=== PATIENT | male | born 1945 | race Caucasian/White ===

== ENCOUNTER 2020-07-22 12:49 | Outpatient (CLI) | payer MEDICARE, SELFPAY ==
[2020-07-22 13:00] LABS: Hemoglobin 13.1 g/dL (12.4-15.3); Mean Corpuscular HGB Conc 33.6 g/dL (32.0-36.0); Mean Corpuscular Hemoglobin 31.1 pg (27.0-31.0); Mean Corpuscular Volume 92.6 fL (78.0-102.0); Mean Platelet Volume 10.2 fl (8.7-11.0); Platelet Count Result 198 K/mm3 (150-420); Red Blood Count 4.21 M/mm3 (4.70-6.10); Red Cell Distribution Width 12.6 % (11.6-14.4); White Blood Count 7.3 K/mm3 (4.8-10.8)
[2020-07-22 14:23] LABS: Alanine Aminotransferase 69 U/L (16-63); Albumin Level 4.2 g/dL (3.4-5.0); Alkaline Phosphatase 76 U/L (46-116); Anion Gap 12 mmol/L (8-16); Aspartate Amino Transferase 37 U/L (15-37); Bilirubin,Total 0.9 mg/dL (0.00-1.00); Blood Urea Nitrogen 17 mg/dL (7-18); Calcium 9.1 mg/dL (8.5-10.1); Carbon Dioxide 25 mmol/L (21-32); Chloride 100 mmol/L (98-108); Cholesterol 123 mg/dL (0-200); Estimated Glomerular Filt Rate > 60; Glucose 94 mg/dL (70-99); HDL Direct 48 mg/dL (40-60); LDL Cholesterol Calculated 34 mg/dL (<130); Osmolality Calculated 285 mOsm/kg (285-295); Potassium 4.5 mmol/L (3.5-5.1); Sodium 137 mmol/L (136-145); Total Protein 7.9 g/dL (6.4-8.2); Triglycerides 204 mg/dL (0-150); Vitamin B12 614 pg/mL (193-986)
[2020-07-22 14:42] LABS: Folic Acid > 20.0 ng/mL (8.6->20)
[2020-07-23 09:48] LABS: Thyroid Stimulating Hormone Reflex 1.14 u/IU/mL (0.36-3.74)
== END 2020-07-22 12:50 | disposition home or self-care (01) ==
PROVIDERS: PCP Family Medicine; Visit Provider Family Medicine
DX: I50.9 Heart failure, unspecified (principal); G62.9 Polyneuropathy, unspecified; E03.9 Hypothyroidism, unspecified; K21.9 Gastro-esophageal reflux disease without esophagitis; Z95.0 Presence of cardiac pacemaker
CPT/HCPCS: 36415; 80053; 80061; 82607; 82746; 84443; 85027

== ENCOUNTER 2021-01-13 10:34 | Outpatient (CLI) | payer MEDICARE, SELFPAY ==
[2021-01-13 12:16] LABS: Alanine Aminotransferase 80 U/L (16-63); Albumin Level 4.3 g/dL (3.4-5.0); Alkaline Phosphatase 80 U/L (46-116); Anion Gap 9 mmol/L (8-16); Aspartate Amino Transferase 46 U/L (15-37); Bilirubin,Total 0.7 mg/dL (0.00-1.00); Blood Urea Nitrogen 14 mg/dL (7-18); Carbon Dioxide 29 mmol/L (21-32); Chloride 102 mmol/L (98-108); Cholesterol 140 mg/dL (0-200); Estimated Glomerular Filt Rate > 60; Glucose 92 mg/dL (70-99); HDL Direct 54 mg/dL (40-60); LDL Cholesterol Calculated 26 mg/dL (<130); Osmolality Calculated 290 mOsm/kg (285-295); Potassium 4.5 mmol/L (3.5-5.1); Sodium 140 mmol/L (136-145); Total Protein 8.1 g/dL (6.4-8.2); Triglycerides 299 mg/dL (0-150)
[2021-01-13 12:37] LABS: Prostate Specific Antigen < 0.1 ng/mL (< OR = 4.0)
== END 2021-01-13 10:35 | disposition home or self-care (01) ==
LOC: CHSLAB 10:37
PROVIDERS: PCP Nurse Practitioner Family; Visit Provider Nurse Practitioner Family
DX: E03.9 Hypothyroidism, unspecified (principal); E78.5 Hyperlipidemia, unspecified; I10 Essential (primary) hypertension; Z12.5 Encounter for screening for malignant neoplasm of prostate
CPT/HCPCS: 36415; 80053; 80061; 84153; 84443; G0103

== ENCOUNTER 2021-01-29 08:46 | Outpatient (CLI) | payer MEDICARE, SELFPAY ==
[2021-01-29 10:21] LABS: Alanine Aminotransferase 69 U/L (16-63); Alkaline Phosphatase 74 U/L (46-116); Aspartate Amino Transferase 42 U/L (15-37); Bilirubin Direct 0.2 mg/dL (0-0.2); Bilirubin,Total 0.7 mg/dL (0.00-1.00); Total Protein 7.4 g/dL (6.4-8.2)
[2021-02-02 22:43] LABS: Hepatitis A Antibody IgM Nonreactive; Hepatitis B Core Antibody Nonreactive (Nonreactive); Hepatitis B Surface Antigen Nonreactive (Nonreactive); Hepatitis C Signal to Cutoff 0.08 ratio (<1.00); Hepatitis C Virus Antibody Nonreactive (Nonreactive)
== END 2021-01-29 08:47 | disposition home or self-care (01) ==
LOC: CHSLAB 08:51
PROVIDERS: PCP Nurse Practitioner Family; Visit Provider Nurse Practitioner Family
DX: R94.5 Abnormal results of liver function studies (principal)
CPT/HCPCS: 36415; 80074; 80076

== ENCOUNTER 2021-07-27 00:02 | Day surgery (SDC) | payer MEDICARE, SELFPAY ==
[2021-07-16 14:56] VITALS: BMI 28.7
[2021-07-27 08:55] VITALS: BP 138/81; PULSE 84; RESP 19; TEMP 36.2; O2SAT 98; BMI 29.7
--- NOTE | 2021-07-27 09:03 | WPDANESEPPF ---
Anes - Initial Pre Proc Eval Procedure: Operation Date: 07/27/21 10:00 Proposed Procedures p Screening Colonoscopy - Sanjay Parikh MD Date/Time: 07/27/21 09:03 Surgeon: Sanjay Parikh MD Pre Op Diagnosis: hx of colon polyps Patient Data Age: 76 Gender: M Height: 1.83 m Weight: 99.7 kg Last Vital Signs Temp 36.2 C L 07/27/21 08:55 Pulse 84 07/27/21 08:55 Resp 19 07/27/21 08:55 BP 138/81 07/27/21 08:55 Pulse Ox 98 07/27/21 08:55 Allergies Allergy/AdvReac Type Severity Reaction Status Date / Time ciprofloxacin Allergy Intermediate Rash Verified 07/27/21 08:54 lisinopril Allergy Intermediate Cough Verified 07/27/21 08:54 Home Medications Medication Instructions Recorded Confirmed Type aspirin 81 mg tablet,delayed 81 mg PO DAILY 04/06/19 07/27/21 History release amlodipine 10 mg tablet 10 mg PO DAILY #90 tablet 03/16/21 07/27/21 Rx atorvastatin 40 mg tablet 40 mg PO QHS #90 tablet 03/16/21 07/27/21 Rx levothyroxine 75 mcg tablet 75 mcg PO DAILY #90 tablet 03/16/21 07/27/21 Rx losartan 100 mg tablet 100 mg PO DAILY #90 tablet 03/16/21 07/27/21 Rx metoprolol tartrate 25 mg tablet 25 mg PO BID #180 tablet 03/16/21 07/27/21 Rx pregabalin 100 mg capsule 100 mg PO TID #90 cap 06/30/21 07/27/21 Rx cyanocobalamin (vitamin B-12) 1,000 mcg PO DAILY 07/16/21 07/27/21 History [Vitamin B-12] Patient hx anesthesia problems: none Family hx anesthesia problems: none Results Review: All pre-operative results and documents have been reviewed as part of the pre-operative evaluation. [facility] Past Medical History Medical History Atrial flutter Diastolic heart failure History of colon polyps Hyperlipidemia Hypertension Hypothyroidism Pacemaker Peripheral neuropathy Personal history of prostate cancer Surgical History Surgical History H/O cardiac radiofrequency ablation (~2018) No history of previous surgery Family History Family History Brother Acute myocardial infarction Father Malignant neoplasm of prostate Mother No active medical problems Social History Social History Smoking status: Never smoker Alcohol intake: current Drinks per week: 21 Alcohol use details: WINE Substance use: never Substance use type: does not use Living arrangements: with family Additional living arrangements comments: . 3 Children. Additional occupation/education comments: Employed at [employer]. Gender identity (if verbalized by the patient): Male Spiritual care concerns: No Agree to blood products: Yes Anes - Eval Final PreProcedure Day of Procedure 07/27/21 09:03 Patient weight: obese Heart: regular rate and rhythm (paced) Lungs: clear to auscultation Airway: Mallampati scale class II Neurological: alert and oriented Last oral intake: >/= 8 hours ASA classification: III Emergent: no Anesthetic plan: proceed Anesthesia type and monitoring: general GIVS and standard monitoring Results Review: All pre-operative results and documents have been reviewed as part of the pre-operative evaluation. Informed Consent: The patient's anesthetic plan and its attendant risks and benefits were discussed with the patient/family/POA. Questions were solicited and answers provided to the satisfaction of the patient/family/POA.
[2021-07-27] MEDS: LACTATED RINGERS 1,000 ML 150 ML IV CONT (09:07)
--- NOTE | 2021-07-27 09:31 | WPDGICN ---
Assessment and Plan Assessment and plan (1) History of colon polyps: Code(s): Z86.010 - Personal history of colonic polyps Status: Acute Assessment and Plan: Patient has a distant history of colon polyps. He presents today for neoplasia screening. Further recommendations will be given after endoscopy. GI Consult Note Consult date/time: 07/27/21 09:31 HPI: Melchor Leone is a 76 year old male Presents for screening colonoscopy. Patient's current weight appetite and bowel movements are normal. He denies abdominal pain. Family history is noncontributory. Patient's last colonoscopy 2012 was unremarkable. He does have prior colonoscopies that had shown colon polyps before that. Patient presents today for neoplasia screening. Review of Systems Review of Systems: All systems reviewed & are unremarkable except as noted in HPI and below PMFSH Past Medical History Medical History Atrial flutter Diastolic heart failure History of colon polyps Hyperlipidemia Hypertension Hypothyroidism Pacemaker Peripheral neuropathy Personal history of prostate cancer Surgical History Surgical History H/O cardiac radiofrequency ablation (~2017) No history of previous surgery Family History Family History Brother Acute myocardial infarction Father Malignant neoplasm of prostate Mother No active medical problems Social History Social History Smoking status: Never smoker Alcohol intake: current Drinks per week: 21 Alcohol use details: WINE Substance use: never Substance use type: does not use Living arrangements: with family Additional living arrangements comments: . 3 Children. Additional occupation/education comments: Employed at [employer]. Gender identity (if verbalized by the patient): Male Spiritual care concerns: No Agree to blood products: Yes Meds Home Medications and Allergies Home Medications Medication Instructions Recorded Confirmed Type aspirin 81 mg tablet,delayed 81 mg PO DAILY 04/06/19 07/27/21 History release amlodipine 10 mg tablet 10 mg PO DAILY #90 tablet 03/16/21 07/27/21 Rx atorvastatin 40 mg tablet 40 mg PO QHS #90 tablet 03/16/21 07/27/21 Rx levothyroxine 75 mcg tablet 75 mcg PO DAILY #90 tablet 03/16/21 07/27/21 Rx losartan 100 mg tablet 100 mg PO DAILY #90 tablet 03/16/21 07/27/21 Rx metoprolol tartrate 25 mg tablet 25 mg PO BID #180 tablet 03/16/21 07/27/21 Rx pregabalin 100 mg capsule 100 mg PO TID #90 cap 06/30/21 07/27/21 Rx cyanocobalamin (vitamin B-12) 1,000 mcg PO DAILY 07/16/21 07/27/21 History [Vitamin B-12] Allergies Allergy/AdvReac Type Severity Reaction Status Date / Time ciprofloxacin Allergy Intermediate Rash Verified 07/27/21 08:54 lisinopril Allergy Intermediate Cough Verified 07/27/21 08:54 Vital Signs Vital Signs - 24 hr 07/27/21 08:55 Temperature 97.2 F L Pulse Rate 84 Respiratory Rate 19 Blood Pressure 138/81 Pulse Oximetry 98 Exam Narrative: Physical exam reveals patient to be alert. Vital signs stable. HEENT exam is unremarkable. Lungs are clear to auscultation and percussion. Heart is without murmur or extra sounds. Abdominal exam bowel sounds are present soft nontender with no organomegaly. Digital external rectal exam is normal.
[2021-07-27 09:54] VITALS: BP 81/40; PULSE 63; RESP 17; O2SAT 97
[2021-07-27 10:04] VITALS: BP 82/45; PULSE 91; RESP 15; O2SAT 97
[2021-07-27 10:14] VITALS: BP 104/61; PULSE 63; RESP 19; O2SAT 98
== END 2021-07-27 10:21 | disposition home or self-care (01) ==
PROVIDERS: PCP Nurse Practitioner Family; Visit Provider Internal Medicine Gastroenterology
PROC: 0DJD8ZZ Inspection of Lower Intestinal Tract, Via Natural or Artificial Opening Endoscopic (ICD-10-PCS; CPT 45378; principal; 2021-07-27 10:00)
DX: Z12.11 Encounter for screening for malignant neoplasm of colon (principal); Z86.010 Personal history of colon polyps; D12.3 Benign neoplasm of transverse colon; K64.8 Other hemorrhoids; I48.92 Unspecified atrial flutter; I11.0 Hypertensive heart disease with heart failure; I50.30 Unspecified diastolic (congestive) heart failure; E78.5 Hyperlipidemia, unspecified; E03.9 Hypothyroidism, unspecified; Z95.0 Presence of cardiac pacemaker; G62.9 Polyneuropathy, unspecified; Z85.46 Personal history of malignant neoplasm of prostate; Z79.82 Long term (current) use of aspirin; E66.9 Obesity, unspecified; Z68.29 Body mass index [BMI] 29.0-29.9, adult
CPT/HCPCS: 45385; 88305; J2001; J2704; J7120

== ENCOUNTER 2021-12-31 11:35 | Outpatient (CLI) | payer MEDICARE, BC, SELFPAY ==
[2021-12-31 18:56] LABS: Basophils Percent Auto 0.6 % (0.2-1.2); Eosinophils Absolute Auto 0.1 K/mm3 (0-0.3); Eosinophils Percent Auto 1.3 % (0-4.4); Hematocrit 50.3 % (42.0-52.0); Hemoglobin 16.9 g/dL (14.0-18.0); Immature Granulocyte Absolute 0.01 K/mm3 (0.00-0.031); Immature Granulocyte Percent A 0.1 % (0-0.5); Lymphocytes Percent Auto 36.2 % (18.3-44.2); Mean Corpuscular HGB Conc 33.6 g/dl (32-36); Mean Corpuscular Hemoglobin 31.5 pg (26-34); Mean Corpuscular Volume 93.8 fl (80-100); Mean Platelet Volume 12.3 fl (7.4-10.4); Monocytes Absolute Auto 0.8 K/mm3 (0.1-0.6); Monocytes Percent Auto 11.6 % (2.6-8.5); Neutrophils Absolute Auto 3.5 K/mm3 (1.3-6.7); Neutrophils Percent Auto 50.2 % (45.5-73.1); Platelet Count Result 124 k/mm3 (150-375); Red Blood Count 5.36 M/mm3 (4.6-6.20); Red Cell Distribution Width 14.7 % (11.5-14.5); White Blood Count 6.9 K/mm3 (4.5-10.0)
[2021-12-31 20:33] LABS: Vitamin D 25 Hydroxy 68.7 ng/mL
[2021-12-31 20:47] LABS: Alanine Aminotransferase 54 U/L (6-50); Albumin Level 4.9 g/dL (3.5-5.1); Alkaline Phosphatase 78 U/L (38-126); Anion Gap 13 mmol/L (8-16); Aspartate Amino Transferase 64 U/L (17-59); Bilirubin,Total 1.5 mg/dL (0.2-1.3); Blood Urea Nitrogen 13 mg/dL (9-20); Calcium 9.5 mg/dL (8.4-10.2); Carbon Dioxide 26 mmol/L (22-30); Chloride 98 mmol/L (98-107); Cholesterol 98 mg/dL (0-200); Estimated Glomerular Filt Rate > 60; Glucose 100 mg/dL (65-110); HDL Direct 45 mg/dL; Potassium 4.3 mmol/L (3.4-5.0); Sodium 137 mmol/L (137-145); Triglycerides 74 mg/dL (<150)
[2021-12-31 21:12] LABS: LDL Cholesterol Direct < 30 mg/dL
[2021-12-31 21:14] LABS: Prostate Specific Antigen 0.2 ng/mL (< OR = 4.0)
[2021-12-31 22:24] LABS: Folic Acid > 20.0 ng/mL (2.76->20)
[2022-01-04 14:07] LABS: Testosterone Total 363 ng/dL (250-1100)
== END 2021-12-31 11:36 | disposition home or self-care (01) ==
LOC: ANHGOSHLAB 11:40
PROVIDERS: Family Medicine; PCP Family Medicine; Visit Provider Urology
DX: G62.9 Polyneuropathy, unspecified (principal); I10 Essential (primary) hypertension; E78.5 Hyperlipidemia, unspecified; E55.9 Vitamin D deficiency, unspecified; C61 Malignant neoplasm of prostate; R68.82 Decreased libido
CPT/HCPCS: 36415; 80053; 80061; 82306; 82607; 82746; 84153; 84403; 84443; 85025

== ENCOUNTER 2022-02-10 11:40 | Outpatient (CLI) | payer MEDICARE, BC, SELFPAY ==
[2022-02-10 20:18] LABS: Basophils Percent Auto 0.5 % (0.2-1.2); Eosinophils Absolute Auto 0.2 K/mm3 (0-0.3); Eosinophils Percent Auto 2.5 % (0-4.4); Hematocrit 49.9 % (42.0-52.0); Hemoglobin 16.1 g/dL (14.0-18.0); Immature Granulocyte Absolute 0.02 K/mm3 (0.00-0.031); Immature Granulocyte Percent A 0.3 % (0-0.5); Mean Corpuscular HGB Conc 32.3 g/dl (32-36); Mean Corpuscular Hemoglobin 31.2 pg (26-34); Mean Corpuscular Volume 96.7 fl (80-100); Mean Platelet Volume 12.4 fl (7.4-10.4); Monocytes Absolute Auto 0.7 K/mm3 (0.1-0.6); Monocytes Percent Auto 11.6 % (2.6-8.5); Neutrophils Absolute Auto 2.6 K/mm3 (1.3-6.7); Neutrophils Percent Auto 42.1 % (45.5-73.1); Platelet Count Result 146 k/mm3 (150-375); Red Blood Count 5.16 M/mm3 (4.6-6.20); Red Cell Distribution Width 14.6 % (11.5-14.5); White Blood Count 6.1 K/mm3 (4.5-10.0)
== END 2022-02-10 11:41 | disposition home or self-care (01) ==
LOC: ANHGOSHLAB 11:43
PROVIDERS: PCP Family Medicine; Visit Provider Family Medicine
DX: D69.6 Thrombocytopenia, unspecified (principal)
CPT/HCPCS: 36415; 85025

== ENCOUNTER 2022-07-02 10:41 | Outpatient (CLI) | payer MEDICARE, BC, SELFPAY ==
[2022-07-02 19:23] LABS: Hematocrit 47.8 % (42.0-52.0); Hemoglobin 16.3 g/dL (14.0-18.0)
[2022-07-02 19:25] LABS: Basophils Percent Auto 0.5 % (0.2-1.2); Eosinophils Absolute Auto 0.3 K/mm3 (0-0.3); Eosinophils Percent Auto 4.4 % (0-4.4); Hematocrit 48.4 % (42.0-52.0); Hemoglobin 16.6 g/dL (14.0-18.0); Immature Granulocyte Absolute 0.02 K/mm3 (0.00-0.031); Immature Granulocyte Percent A 0.3 % (0-0.5); Immature Platelet Fraction Pct 11.8 % (0.9-11.2); Lymphocytes Percent Auto 47.9 % (18.3-44.2); Mean Corpuscular HGB Conc 34.3 g/dl (32-36); Mean Corpuscular Volume 96.2 fl (80-100); Mean Platelet Volume 11.6 fl (7.4-10.4); Monocytes Absolute Auto 0.8 K/mm3 (0.1-0.6); Neutrophils Absolute Auto 2.7 K/mm3 (1.3-6.7); Neutrophils Percent Auto 35.9 % (45.5-73.1); Platelet Count Result 109 k/mm3 (150-375); Red Blood Count 5.03 M/mm3 (4.6-6.20); Red Cell Distribution Width 13.7 % (11.5-14.5); White Blood Count 7.5 K/mm3 (4.5-10.0)
[2022-07-02 19:47] LABS: Alanine Aminotransferase 51 U/L (6-50); Albumin Level 4.7 g/dL (3.5-5.1); Alkaline Phosphatase 69 U/L (38-126); Anion Gap 7 mmol/L (8-16); Aspartate Amino Transferase 60 U/L (17-59); Bilirubin,Total 1.3 mg/dL (0.2-1.3); Blood Urea Nitrogen 15 mg/dL (9-20); Calcium 8.5 mg/dL (8.4-10.2); Carbon Dioxide 29 mmol/L (22-30); Chloride 99 mmol/L (98-107); Estimated Glomerular Filt Rate > 60; Glucose 101 mg/dL (65-110); Potassium 4.2 mmol/L (3.4-5.0); Sodium 135 mmol/L (137-145)
[2022-07-06 18:30] LABS: PSA, Free 0.03 ng/mL; PSA, Total 0.3 ng/mL (<=4.0)
[2022-07-09 17:09] LABS: Testosterone Free 55.6 pg/mL (30.0-135.0); Testosterone Total 409 ng/dL (250-1100)
== END 2022-07-02 10:42 | disposition home or self-care (01) ==
LOC: ANHGOSHLAB 10:44
PROVIDERS: PCP Family Medicine; Referring Provider Urology; Visit Provider Family Medicine
DX: R74.8 Abnormal levels of other serum enzymes (principal); I10 Essential (primary) hypertension; Z79.899 Other long term (current) drug therapy; C61 Malignant neoplasm of prostate
CPT/HCPCS: 36415; 80053; 84153; 84154; 84402; 84403; 85014; 85018; 85025; 85055

== ENCOUNTER 2022-09-23 14:16 | Outpatient (CLI) | payer MEDICARE, BC, SELFPAY ==
[2022-09-23 14:33] LABS: Basophils Absolute Auto 0.1 K/mm3 (0.0-0.1); Basophils Percent Auto 0.6 % (0.2-1.2); Eosinophils Absolute Auto 0.2 K/mm3 (0-0.3); Eosinophils Percent Auto 2.2 % (0-4.4); Hemoglobin 16.3 g/dL (14.0-18.0); Immature Granulocyte Absolute 0.06 K/mm3 (0.00-0.031); Immature Granulocyte Percent A 0.7 % (0-0.5); Lymphocytes Absolute Auto 3.45 K/mm3 (0.9-3.2); Lymphocytes Percent Auto 40.1 % (18.3-44.2); Mean Corpuscular Hemoglobin 32.3 pg (26-34); Mean Platelet Volume 10.3 fl (7.4-10.4); Monocytes Absolute Auto 1.1 K/mm3 (0.1-0.6); Monocytes Percent Auto 13.3 % (2.6-8.5); Neutrophils Absolute Auto 3.7 K/mm3 (1.3-6.7); Neutrophils Percent Auto 43.1 % (45.5-73.1); Platelet Count Result 141 k/mm3 (150-375); Red Blood Count 5.05 M/mm3 (4.6-6.20); Red Cell Distribution Width 13.4 % (11.5-14.5); White Blood Count 8.6 K/mm3 (4.5-10.0)
[2022-09-23 16:26] LABS: Iron 118 ug/dL (49-181)
[2022-09-23 16:33] LABS: Alanine Aminotransferase 49 U/L (6-50); Albumin Level 4.7 g/dL (3.5-5.1); Alkaline Phosphatase 72 U/L (38-126); Anion Gap 10 mmol/L (8-16); Aspartate Amino Transferase 49 U/L (17-59); Bilirubin,Total 1.2 mg/dL (0.2-1.3); Blood Urea Nitrogen 13 mg/dL (9-20); Calcium 8.8 mg/dL (8.4-10.2); Carbon Dioxide 26 mmol/L (22-30); Chloride 100 mmol/L (98-107); Estimated Glomerular Filt Rate > 60; Glucose 93 mg/dL (65-110); Potassium 4.4 mmol/L (3.4-5.0); Sodium 136 mmol/L (137-145)
[2022-09-23 16:40] LABS: Percent Iron Saturation 30 % (20-50)
[2022-09-23 18:24] LABS: Folic Acid > 20.0 ng/mL (2.76->20)
== END 2022-09-23 14:17 | disposition home or self-care (01) ==
LOC: ANHLAB 14:18
PROVIDERS: PCP Family Medicine; Visit Provider Internal Medicine Hematology & Oncology
DX: D69.59 Other secondary thrombocytopenia (principal)
CPT/HCPCS: 36415; 80053; 82607; 82728; 82746; 83540; 83550; 85025; 86023

== ENCOUNTER 2022-09-30 08:57 | Outpatient (CLI) | payer MEDICARE, BC, SELFPAY ==
--- NOTE | ~2022-09-30 | US_ITS ---
US abdomen complete EXAMINATION: US Abdomen Complete INDICATION: Secondary thrombocytopenia PROCEDURE: Realtime High Resolution abdomen ultrasound. COMPARISON: No prior studies for comparison FINDINGS: Gallbladder within normal limits. No gallstones, pericholecystic fluid, gallbladder wall t hickening or biliary dilatation. Common bile duct measures 4 mm. Liver echotexture within normal limits without focal mass. Pancreas within normal limits. Pancreati c tail is obscured by bowel gas. Spleen is unremarkeable. Renal echotexture is within normal limits bilaterally without hydronephrosis, contour deforming mass or renal stone. Right kidney measures 10.6 cm. Left kidney measures 10.9 cm. There is a right renal cyst measuring 2.5 cm. Visualized aspects of the aorta and IVC are within normal limits. Portal vein is patent. No sonograph ic Moreno's sign indicated by the technologist. IMPRESSION: 1: Right renal cyst measuring 2.5 cm. Reviewed, dictated and finalized at location .
== END 2022-09-30 08:58 | disposition home or self-care (01) ==
PROVIDERS: PCP Family Medicine; Visit Provider Internal Medicine Hematology & Oncology
DX: D69.59 Other secondary thrombocytopenia (principal); N28.1 Cyst of kidney, acquired
CPT/HCPCS: 76700

== ENCOUNTER 2023-01-03 11:24 | Outpatient (CLI) | payer MEDICARE, BC, SELFPAY ==
[2023-01-03 17:44] LABS: Basophils Absolute Auto 0.1 K/mm3 (0.0-0.1); Basophils Percent Auto 0.7 % (0.2-1.2); Eosinophils Absolute Auto 0.2 K/mm3 (0-0.3); Eosinophils Percent Auto 2.6 % (0-4.4); Hematocrit 50.4 % (42.0-52.0); Immature Granulocyte Absolute 0.02 K/mm3 (0.00-0.031); Immature Granulocyte Percent A 0.3 % (0-0.5); Lymphocytes Absolute Auto 3.26 K/mm3 (0.9-3.2); Lymphocytes Percent Auto 44.8 % (18.3-44.2); Mean Corpuscular HGB Conc 33.7 g/dl (32-36); Mean Corpuscular Hemoglobin 32.2 pg (26-34); Mean Corpuscular Volume 95.5 fl (80-100); Monocytes Absolute Auto 0.8 K/mm3 (0.1-0.6); Monocytes Percent Auto 11.6 % (2.6-8.5); Neutrophils Absolute Auto 2.9 K/mm3 (1.3-6.7); Platelet Count Result 125 k/mm3 (150-375); Red Blood Count 5.28 M/mm3 (4.6-6.20); Red Cell Distribution Width 13.6 % (11.5-14.5); White Blood Count 7.3 K/mm3 (4.5-10.0)
[2023-01-03 18:37] LABS: Alanine Aminotransferase 71 U/L (6-50); Albumin Level 4.7 g/dL (3.5-5.1); Alkaline Phosphatase 79 U/L (38-126); Anion Gap 7 mmol/L (8-16); Aspartate Amino Transferase 81 U/L (17-59); Bilirubin,Total 1.4 mg/dL (0.2-1.3); Blood Urea Nitrogen 11 mg/dL (9-20); Carbon Dioxide 30 mmol/L (22-30); Chloride 99 mmol/L (98-107); Cholesterol 131 mg/dL (0-200); Estimated Glomerular Filt Rate > 60; Glucose 98 mg/dL (65-110); HDL Direct 49 mg/dL; Potassium 4.2 mmol/L (3.4-5.0); Sodium 136 mmol/L (137-145); Triglycerides 87 mg/dL (<150)
[2023-01-03 18:49] LABS: LDL Cholesterol Direct 65 mg/dL
== END 2023-01-03 11:25 | disposition home or self-care (01) ==
LOC: ANHGOSHLAB 11:26
PROVIDERS: PCP Family Medicine; Visit Provider Nurse Practitioner Family
DX: E03.9 Hypothyroidism, unspecified (principal); I10 Essential (primary) hypertension; E78.5 Hyperlipidemia, unspecified
CPT/HCPCS: 36415; 80053; 80061; 84443; 85025

== ENCOUNTER → 2023-05-24 13:30 | Outpatient (CLI) | payer MEDICARE, BC, SELFPAY ==
--- NOTE | ~2023-05-24 | XR_ITS ---
XR cervical spine 4-5V DATE: 05/24/2023 13:49 INDICATION: Neck pain radiating down left arm TECHNIQUE: Neutral, flexion and extension lateral views. AP and open-mouth views. COMPARISON: None FINDINGS: C1 and C2 are normally aligned and the odontoid process is intact. There is moderate degenerative disc disease at C3-4 and C6-7, mild degenerative disc disease at C5-6. No fracture or dislocation or locked facet or prevertebral soft tissue swelling. No cervical instabil ity is evident on flexion or extension. IMPRESSION: Mild to moderate degenerative disease Reviewed, dictated and finalized at location L. L WINDOW FRAME MAKER
== END ==
PROVIDERS: PCP Family Medicine; Visit Provider Family Medicine
DX: M50.322 Other cervical disc degeneration at C5-C6 level (principal)
CPT/HCPCS: 72050

== ENCOUNTER 2023-05-26 13:39 | Outpatient (RCR) | payer MEDICARE, BC, SELFPAY ==
--- NOTE | 2023-05-26 14:36 | OPREHPOC ---
Outpatient Therapy Plan of Care This is a Multidisciplinary Plan of Care that may contain components documented by all disciplines (PT, OT, and ST.) PT Problem 1 PT Problem #1 Knowledge Deficit PT Goal 1 Goal 1. follow up with MD and call back to therapy regarding plan to see a specialist for injections or surgery. Target Visit 2
--- NOTE | 2023-05-26 14:36 | PTOPEVAL1 ---
Assessment and note entered by JT File, PT Evaluation Information Assessment Status Evaluation Diagnosis cervical radiculopathy Onset 04/15/23 Subjective Information patient reports on the first day of april her began having pain in the neck and down the R arm. he reports it lasted about 1 week. he reports he rested for a few days and it got better, then about 2 weeks ago it came back and it has not let up since. he reports he has had an xray of the cervical spine that shows DDD. he reports he was given some prescription meds for inflamation. he reports he has increased pain with looking up to the ceiling. he reports he also has pain at times with looking L and R. Reported Pain Level Pain Score 3: Self Report Assessment PT Clinical Summary mr. garrett is a 78 yo man who presents to skilled PT services for evaluation and treatment of cervical radiculopathy. he presents today with pain in the neck and radicular symptoms in the R upper back and down the R UE to the entire hand. he presents with decreased cervical rom, poor cervical core strength, poor cervical and shoulder posture, and decreased quality of life. he is unable to tolerate active/passive rom of the cervical spine, postural exercises of the scapulae , or cervical core/deep flexor strengthening. he is unable to benefit from e-stim as he has a pacemaker, and is unable to get positioned on mechanical traction without symptoms. at this time , patient would not benefit from continued skilled PT. he would best seek evaluation from specialist of the cervical spine. he may require injections or surgery prior to being able to experience benefit from skilled PT. will hold patients chart at this time to allow follow up with MD and call to confirm plan for the neck. Plan of Care Interventions Patient/Caregiver Educati PT Services Indicated No Treatment Frequency and hold therapy to allow patient to follow up with MD Duration and seek evaluation by specialist for injections or cervical spine surgery. These treatments will address the objective and functional deficits as defined above. The patient will be advanced safely and appropriately in order for the patient to progress towards his/her prior level of function. Additional exercises will be introduced and as well as a comprehensive home exercise program upon discharge, if needed, ?to ensure carryover of functional gains achieved in the clinic. This treatment plan has been reviewed and agre
== END 2023-05-26 20:00 | disposition home or self-care (01) ==
LOC: CHSPT 13:39
PROVIDERS: PCP Family Medicine; Visit Provider Family Medicine
DX: M54.12 Radiculopathy, cervical region (principal)
CPT/HCPCS: 97110; 97161

== ENCOUNTER 2023-06-01 13:38 | Outpatient (CLI) | payer MEDICARE, SELFPAY ==
--- NOTE | ~2023-06-01 | CT_ITS ---
EXAMINATION: CT cervical spine wo con DATE: 06/01/2023 13:58 INDICATION: Neck pain. TECHNIQUE: Computed tomography (CT) of the cervical spine was performed without intravenous contrast. Automated exposure control and iterative reconstruction technique were employed. The dose-length pro duct was 247.96 mGy-cm. COMPARISON: Cervical spine radiographs 05/24/2023 FINDINGS: There is 5 degrees dextrocurvature of cervical spine. There is 2 mm retrolisthesis of C3 on C4. Vertebral body heights are normal. There is severely decreased disc height at C3-C4, mildly decr eased disc height at C4-C5, moderately decreased disc height at C5-C6, and severely decreased disc he ight at C6-C7. Osseous central spinal canal is developmentally small. The following disc levels are s pecifically discussed: C2-C3: There is mild bilateral uncovertebral joint osteoarthritis. There is severe bilateral facet stephanie int osteoarthritis. There is mild bilateral neural foraminal stenosis. There is mild central canal st enosis. C3-C4: There is severe bilateral uncovertebral joint osteoarthritis. There is severe bilateral facet joint osteoarthritis. There is mild bilateral neural foraminal stenosis. There is moderate central ca nal stenosis. C4-C5: There is mild bilateral uncovertebral joint osteoarthritis. There is severe bilateral facet stephanie int osteoarthritis. There is mild right and moderate left neural foraminal stenosis. There is mild ce ntral canal stenosis. C5-C6: There is moderate severe left uncovertebral joint osteoarthritis. There is severe bilateral fa cet joint osteoarthritis. There is mild right and moderate left neural foraminal stenosis. There is m ild central canal stenosis. C6-C7: There is severe bilateral uncovertebral joint osteoarthritis. There is mild bilateral facet stephanie int osteoarthritis. There is mild bilateral neural foraminal stenosis. There is mild central canal st enosis. C7-T1: There is mild right uncovertebral joint osteoarthritis. There is severe bilateral facet joint osteoarthritis. There is mild bilateral neural foraminal stenosis. There is no central canal stenosis . IMPRESSION: 1. Severe cervical spondylosis. Reviewed, dictated and finalized at location E. K PIECE TACKER
== END 2023-06-01 13:39 ==
PROVIDERS: PCP Anesthesiology Pain Medicine; Visit Provider Family Medicine
DX: M43.02 Spondylolysis, cervical region (principal)
CPT/HCPCS: 72125

== ENCOUNTER 2023-07-05 10:33 | Outpatient (CLI) | payer MEDICARE, SELFPAY ==
[2023-07-05 14:20] LABS: Basophils Percent Auto 0.5 % (0.2-1.2); Eosinophils Absolute Auto 0.1 K/mm3 (0-0.3); Eosinophils Percent Auto 1.7 % (0-4.4); Hemoglobin 15.6 g/dL (14.0-18.0); Immature Granulocyte Absolute 0.05 K/mm3 (0.00-0.031); Immature Granulocyte Percent A 0.6 % (0-0.5); Lymphocytes Percent Auto 46.3 % (18.3-44.2); Mean Corpuscular HGB Conc 32.5 g/dl (32-36); Mean Corpuscular Hemoglobin 31.7 pg (26-34); Mean Corpuscular Volume 97.6 fl (80-100); Mean Platelet Volume 11.6 fl (7.4-10.4); Neutrophils Absolute Auto 2.9 K/mm3 (1.3-6.7); Neutrophils Percent Auto 37.9 % (45.5-73.1); Platelet Count Result 206 k/mm3 (150-375); Red Blood Count 4.92 M/mm3 (4.6-6.20); Red Cell Distribution Width 14.1 % (11.5-14.5); White Blood Count 7.8 K/mm3 (4.5-10.0)
[2023-07-05 15:06] LABS: Cholesterol 118 mg/dL (0-200); HDL Direct 39 mg/dL; Triglycerides 85 mg/dL (<150)
[2023-07-05 15:07] LABS: Alanine Aminotransferase 58 U/L (6-50); Albumin Level 4.6 g/dL (3.5-5.1); Alkaline Phosphatase 59 U/L (38-126); Anion Gap 4 mmol/L (8-16); Aspartate Amino Transferase 92 U/L (17-59); Bilirubin,Total 1.5 mg/dL (0.2-1.3); Blood Urea Nitrogen 11 mg/dL (9-20); Calcium 9.7 mg/dL (8.4-10.2); Carbon Dioxide 33 mmol/L (22-30); Chloride 101 mmol/L (98-107); Estimated Glomerular Filt Rate > 60; Glucose 91 mg/dL (65-110); Potassium 4.1 mmol/L (3.4-5.0); Sodium 138 mmol/L (137-145)
[2023-07-05 15:21] LABS: LDL Cholesterol Direct 54 mg/dL
[2023-07-05 15:59] LABS: Thyroid Stimulating Hormone Reflex 0.929 uIU/mL (0.465-4.68)
== END 2023-07-05 10:34 | disposition home or self-care (01) ==
PROVIDERS: Nurse Practitioner Family; PCP Anesthesiology Pain Medicine; Visit Provider Family Medicine
DX: E03.9 Hypothyroidism, unspecified (principal); D69.6 Thrombocytopenia, unspecified; I11.0 Hypertensive heart disease with heart failure; I50.30 Unspecified diastolic (congestive) heart failure; I87.2 Venous insufficiency (chronic) (peripheral)
CPT/HCPCS: 36415; 80053; 80061; 84443; 85025

== ENCOUNTER 2023-12-22 10:13 | Outpatient (CLI) | payer MEDICARE, SELFPAY ==
[2023-12-22 12:58] LABS: Basophils Percent Auto 0.6 % (0.2-1.2); Eosinophils Absolute Auto 0.1 K/mm3 (0-0.3); Eosinophils Percent Auto 1.3 % (0-4.4); Hematocrit 56.2 % (42.0-52.0); Hemoglobin 18.8 g/dL (14.0-18.0); Immature Granulocyte Absolute 0.03 K/mm3 (0.00-0.031); Immature Granulocyte Percent A 0.4 % (0-0.5); Immature Platelet Fraction Pct 18.7 % (0.9-11.2); Lymphocytes Absolute Auto 3.82 K/mm3 (0.9-3.2); Lymphocytes Percent Auto 56.3 % (18.3-44.2); Mean Corpuscular HGB Conc 33.5 g/dl (32-36); Mean Corpuscular Volume 92.6 fl (80-100); Mean Platelet Volume 12.3 fl (7.4-10.4); Monocytes Absolute Auto 0.7 K/mm3 (0.1-0.6); Monocytes Percent Auto 10.9 % (2.6-8.5); Neutrophils Absolute Auto 2.1 K/mm3 (1.3-6.7); Neutrophils Percent Auto 30.5 % (45.5-73.1); Platelet Count Result 74 k/mm3 (150-375); Red Blood Count 6.07 M/mm3 (4.6-6.20); White Blood Count 6.8 K/mm3 (4.5-10.0)
[2023-12-22 13:07] LABS: Alanine Aminotransferase 51 U/L (6-50); Albumin Level 4.6 g/dL (3.5-5.1); Alkaline Phosphatase 86 U/L (38-126); Anion Gap 8 mmol/L (4-12); Aspartate Amino Transferase 79 U/L (17-59); Bilirubin,Total 1.7 mg/dL (0.2-1.3); Blood Urea Nitrogen 18 mg/dL (9-20); Calcium 9.3 mg/dL (8.4-10.2); Carbon Dioxide 29 mmol/L (22-30); Chloride 100 mmol/L (98-107); Cholesterol 192 mg/dL (0-200); Estimated Glomerular Filt Rate > 60; Glucose 93 mg/dL (65-110); HDL Direct 57 mg/dL; Potassium 4.7 mmol/L (3.4-5.0); Sodium 137 mmol/L (137-145); Triglycerides 101 mg/dL (<150)
[2023-12-22 13:18] LABS: LDL Cholesterol Direct 115 mg/dL
[2023-12-22 14:15] LABS: Free T4 Free Thyroxine 0.92 ng/mL (0.78-2.19)
[2023-12-24 11:44] LABS: Triiodothyronine T3 Free 3.4 pg/mL (2.3-4.2)
[2023-12-26 12:28] LABS: PSA, Free <0.1 ng/mL; PSA, Total 0.3 ng/mL (< OR = 4.0); Percent Free Prostate Spec Ag UNABLE TO CALCULATE % (calc) (>25)
[2023-12-27 12:33] LABS: Vitamin D 1,25 (OH)2 Total 16 pg/mL (18-72); Vitamin D2 1,25 (OH)2 <8 pg/mL; Vitamin D3 1,25 (OH)2 16 pg/mL
== END 2023-12-22 10:14 | disposition home or self-care (01) ==
PROVIDERS: PCP Family Medicine; Visit Provider Nurse Practitioner Family
DX: E55.9 Vitamin D deficiency, unspecified (principal); I10 Essential (primary) hypertension; Z12.5 Encounter for screening for malignant neoplasm of prostate; E03.9 Hypothyroidism, unspecified; R79.89 Other specified abnormal findings of blood chemistry
CPT/HCPCS: 36415; 80053; 80061; 82652; 84153; 84154; 84439; 84443; 84481; 85025; 85055

== ENCOUNTER 2023-12-26 15:59 | Outpatient (CLI) | payer MEDICARE, SELFPAY ==
[2023-12-26 19:04] LABS: Basophils Absolute Auto 0.1 K/mm3 (0.0-0.1); Basophils Percent Auto 0.6 % (0.2-1.2); Eosinophils Absolute Auto 0.1 K/mm3 (0-0.3); Eosinophils Percent Auto 1.3 % (0-4.4); Hematocrit 53.5 % (42.0-52.0); Hemoglobin 18.3 g/dL (14.0-18.0); Immature Granulocyte Absolute 0.02 K/mm3 (0.00-0.031); Immature Granulocyte Percent A 0.2 % (0-0.5); Lymphocytes Absolute Auto 4.19 K/mm3 (0.9-3.2); Lymphocytes Percent Auto 49.4 % (18.3-44.2); Mean Corpuscular HGB Conc 34.2 g/dl (32-36); Mean Corpuscular Hemoglobin 31.7 pg (26-34); Mean Corpuscular Volume 92.7 fl (80-100); Mean Platelet Volume 12.1 fl (7.4-10.4); Monocytes Percent Auto 11.2 % (2.6-8.5); Neutrophils Absolute Auto 3.2 K/mm3 (1.3-6.7); Neutrophils Percent Auto 37.3 % (45.5-73.1); Platelet Count Result 104 k/mm3 (150-375); Red Blood Count 5.77 M/mm3 (4.6-6.20); Red Cell Distribution Width 15.9 % (11.5-14.5); White Blood Count 8.5 K/mm3 (4.5-10.0)
[2024-01-01 12:09] LABS: Testosterone Free 308.6 pg/mL (30.0-135.0); Testosterone Total 1419 ng/dL (250-1100)
== END 2023-12-26 16:00 | disposition home or self-care (01) ==
PROVIDERS: Nurse Practitioner Family; PCP Family Medicine; Visit Provider Family Medicine
DX: D69.6 Thrombocytopenia, unspecified (principal); E29.1 Testicular hypofunction
CPT/HCPCS: 36415; 84402; 84403; 85025

== ENCOUNTER 2024-08-03 09:29 | Outpatient (CLI) | payer MEDICARE, SELFPAY ==
--- OUTSIDE RECORDS SUMMARY | 2024-08-03 10:36 | XMS_ITS | Referral Summary ---
Author Organization [facility] Medical [facility] [address] Address [address] [place] [address] Care Team Providers Care Service Person Name Role Phone Mike Dodd MD Primary Care Provider Delvis Amato NET UI DEVELOPER Unavailable [phone] Encounters Date Type Department Care Team Description 06/06/2024 Orders Only [facility] Cardiology [address] [place] [address] [place] [address] Abel Levy MD from Last 3 Months Allergies Active Allergy Reactions Criticality Noted Date Comments Ciprofloxacin Lisinopril Cough Low Medications losartan (COZAAR) 100 mg tablet daily. 02/03/20 18 Active metoprolol (LOPRESSOR) 25 mg tablet 2 (two) times a day 02/02/20 18 Active aspirin 81 mg tablet Take 1 tablet (81 mg total) by mouth daily Active levothyroxine (SYNTHROID) 75 mcg tablet 01/01/20 19 Active testosterone cypionate (DEPO-TESTOTER ONE) 200 mg/mL injection INJECT 3ML INTRAMUSCULARLY MONTHLY 04/02/20 22 Active Active Problems Problem Noted Date Diagnosed Date Cervical spinal stenosis 05/31/2023 Cervical radiculopathy 05/31/2023 Pacemaker 03/31/2023 Assessment & Plan (03/29/2024 11:20 AM ACCOUNT MANAGER B2B): -Dual chamber pacemaker is functioning appropriately as programmed -Lead impedances, sensing, and thresholds are stable -No programming changes -Continue remote monitoring quarterly -Follow up in 1 year for device check Assessment & Plan (03/31/2023 11:13 AM ACCOUNT MANAGER B2B): Dual chamber pacemaker is functioning appropriately as programmed Lead impedances, sensing, and thresholds are stable No programming changes Continue remote monitoring quarterly Follow up in 1 year for device check SSS (sick sinus syndrome) 03/06/2018 Assessment & Plan (03/29/2024 11:20 AM ACCOUNT MANAGER B2B): -Sinus node dysfunction s/p dual chamber pacemaker (Medtronic) 02/2015 Assessment & Plan (03/31/2023 11:12 AM ACCOUNT MANAGER B2B): Sinus node dysfunction s/p dual chamber pacemaker (Medtronic) 02/2015 Assessment & Plan (04/06/2022 1:27 PM ACCOUNT MANAGER B2B): Sinus node dysfunction s/p dual chamber pacemaker 02/2015 Dual chamber pacemaker is functioning appropriately as programmed Lead impedances, sensing, and thresholds are stable No programming changes Continue remote monitoring quarterly Follow up in 1 year for device check NSVT (nonsustained ventricular tachycardia) 02/14 Assessment & Plan (03/29/2024 11:20 AM ACCOUNT MANAGER B2B): -Continue metoprolol Hypertension 12/04/2015 Typical atrial flutter 12/04/2015 Assessment & Plan (03/29/2024 11:20 AM ACCOUNT MANAGER B2B): -Atrial flutter s/p CTI-dependent flutter ablation by Dr. Johnson in 12/2015 -No recurrent atrial arrhythmias on device interrogation -Continue metoprolol 25 mg BID Assessment & Plan (03/31/2023 11:13 AM ACCOUNT MANAGER B2B): Atrial flutter s/p CTI-dependent flutter ablation by Dr. Johnson in 12/2015 No recurrent atrial arrhythmias on device interrogation Continue metoprolol 25 mg BID Assessment & Plan (04/06/2022 1:26 PM ACCOUNT MANAGER B2B): Atrial flutter s/p CTI-dependent flutter ablation by Dr. Johnson in 12/2015 No recurrent atrial arrhythmias on device interrogation Continue aspirin daily and metoprolol 25 mg BID Social History Tobacco Use Types Packs/Day Years Used Date Smoking Tobacco: Never Smokeless Tobacco: Never Tobacco Cessation:Counseling Given: Not Answered Sex and Gender Information Value Date Recorded Sex Assigned at Not on file Legal Sex Male 7:30 AM ACCOUNT MANAGER B2B Gender Identity Male 10/09/2019 12:13 PM CDT Sexual Orientation Straight 10/09/2019 12 :13 PM CDT Last Filed Vital Signs Vital Sign Reading Time Taken Comments Blood Pressure 138/84 03/29/2024 11:19 AM ACCOUNT MANAGER B2B Pulse 89 03/29/2024 11:19 AM ACCOUNT MANAGER B2B Temperature 36.8 C (98.2 F) 01/13/2024 9:12 AM CDT Respiratory Rate 18 02/02/2024 12:59 PM CDT Oxygen Saturation 91% 03/29/2024 11:19 AM ACCOUNT MANAGER B2B Inhaled Oxygen Concentration - - Weight 93.4 kg (206 lb) 03/29/2024 11:19 AM ACCOUNT MANAGER B2B Height 182.9 cm (6') 03/29/2024 11:19 AM ACCOUNT MANAGER B2B Body Mass Index 27.94 03/29/2024 11:19 AM ACCOUNT MANAGER B2B Plan of Treatment Not on file Procedures Procedure Name Priority Date/Time Associated Diagnosis Comments DEVICE CHECK - REMOTE Routine 06/06/2024 1:25 PM ACCOUNT MANAGER B2B from Last 3 Months Results * DEVICE CHECK - REMOTE (06/06/2024 1:25 PM ACCOUNT MANAGER B2B) Anatomical Region Laterality Modality Other 06/06/2024 1:25 PM ACCOUNT MANAGER B2B Narrative 07/22/2024 11:24 PM CDT Interpretation Summary: Battery and Leads (BL) Normal parameters noted on battery and lead(s) --- One year remaining longevity (implanted 2014). Lead impedance, threshold, and RV sensing trends stable and appropriate. No short V-V intervals. P wave out of range --- P wave 0.3 mV. Per trend, measurements are typically low. Atrial sensitivity is programmed 0.3 mV. Presenting Rhythm (KS) Atrial Pacing-Ventricular Sensing (AP-VS) --- AP/VS 68 bpm. Arrhythmic events (AE) Paroxysmal atrial fibrillation and/or flutter --- Since 03/29/24: 8 AT/AF detections, max 8 hrs, and AT/AF burden 1.2%, with EGMs appearing to show AF/VS with controlled V rates. Undersensing is noted --- One NSVT episode, one second, ? NSVT vs AT with atrial under-sensing. Anticoagulation (AC) Patient is not on anticoagulant therapy Anticoagulation is not clinically indicated --- AT/AF burden 1.2%, max duration 8 hrs. Transmission Information (TI) Device Summary Report Follow Up (FU) Patient's primary treating physician will be apprised of findings Procedure Note Abel Levy MD - 07/22/2024 Interpretation Summary: Battery and Leads (BL) Normal parameters noted on battery and lead(s) --- One year remaininglongevity (implanted 2014). Lead impedance, threshold, and RV sensingtrends stable and appropriate. No short V-V intervals. P wave out of range --- P wave 0.3 mV. Per trend, measurements aretypically low. Atrial sensitivity is programmed 0.3 mV. Presenting Rhythm (KS) Atrial Pacing-Ventricular Sensing (AP-VS) --- AP/VS 68 bpm. Arrhythmic events (AE) Paroxysmal atrial fibrillation and/or flutter --- Since 03/29/24: 8AT/AF detections, max 8 hrs, and AT/AF burden 1.2%, with EGMs appearing toshow AF/VS with controlled V rates. Undersensing is noted --- One NSVT episode, one second, ? NSVT vs AT withatrial under-sensing. Anticoagulation (AC) Patient is not on anticoagulant therapy Anticoagulation is not clinically indicated --- AT/AF burden 1.2%, maxduration 8 hrs. Transmission Information (TI) Device Summary Report Follow Up (FU) Patient's primary treating physician will be apprised of findings us Abel Levy MD [facility] JEREMIAH Final Result from Last 3 Months Insurance MEDICARE BLUE TRADITIONAL OOS MEDICARE BLUE TRADITIONAL OOS Care Teams Service Person Relationship Specialty Start Date End Date Mike Dodd MD [address] [facility] [place] [address] PCP - General Family Practice 05/31/23 [place] [address] [address] Nurse Practitioner Nurse Practitioner 01/09/24
--- OUTSIDE RECORDS SUMMARY | 2024-08-03 10:36 | XMS_ITS | Encounter Summary ---
Author Organization [facility] Address [address] [place] [address] Phone Care Team Providers Care Medicine Teacher Name Role Phone Shade Maya MD Primary Care Provider Mike Dodd MD Primary Care Provider Delvis Amato ELECTRONICS ENGINEERING TECHNICIAN Unavailable [phone] Encounter Details Date Type Department Care Team (Late st Contact Info) Description 12/02/2015 Orders Only [facility] Provider, MD Mary [address] [place] [id number] Social History Tobacco Use Types Packs/Day Years Used Date Smoking Tobacco: Never Assessed Sex and Gender Information Value Date Recorded Sex Assigned at Not on file Legal Sex Male 7:30 AM DEALER SUPPORT TECHNICIAN Gender Identity Male 10/09/2019 12:13 PM CDT Sexual Orientation Straight 10/09/2019 12 :13 PM CDT documented as of this encounter Plan of Treatment Not on file documented as of this encounter Procedures Procedure Name Priority Date/Time Associated Diagnosis Comments CARDIOLOGY REPORT 12/02/2015 CARDIOLOGY REPORT 12/02/2015 documented in this encounter Results * CARDIOLOGY REPORT (12/02/2015) Anatomical Region Laterality Modality Other Narrative 12/02/2015 Ordered by an unspecified provider. Historical Provider [facility] PROCE DURES Final Result * CARDIOLOGY REPORT (12/02/2015) Anatomical Region Laterality Modality Other Narrative 12/02/2015 Ordered by an unspecified provider. us Historical Provider [facility] PROCE JEREMIAH Final Result documented in this encounter Visit Diagnoses Not on filedocumented in this encounter Care Teams Medicine Teacher Relationship Specialty Start Date End Date Shade Maya MD [address] [address] PCP - General 02/28/17 05/30/23 Mike Dodd MD [address] [facility] [address] [place] [address] PCP - General Family Practice 05/31/23 [place] [address] [address] Nurse Practitioner Nurse Practitioner 01/09/24 documented as of this encounter
--- OUTSIDE RECORDS SUMMARY | 2024-08-03 10:36 | XMS_ITS | Clinical Summary ---
Author Organization [facility] Donald Dalal Address [address] [place] [address] Care Team Providers Care Physical Scientist Name Role Phone Unavailable Primary Care Provider Unavailabl e Allergies Active Allergy Reactions Criticality Noted Date Comments Ciprofloxacin Unknown High 06/03/2014 Lisinopril Unknown High 06/03/2014 Medications amLODIPine (NORVASC) 10 mg tablet Take 10 mg by mouth daily. Active losartan (COZAAR) 100 mg tablet Take 100 mg by mouth daily. 09/10/19 Active levothyroxine 75 mcg tablet Take 75 mcg by mouth daily. 06/28/19 Active atorvastatin (LIPITOR) 40 mg tablet Take 40 mg by mouth daily at bedtime. 09/10/19 Active aspirin (ECOTRIN EC) 81 mg Tablet, Delayed Release (E.C.) Take 81 mg by mouth daily. Active metoprolol tartrate (LOPRESSOR) 25 mg tablet Take 25 mg by mouth 2 times daily. 06/28/19 Active testosterone cypionate (DEPO-TESTOSTE PAUL) 200 mg/mL Oil INJECT 3ML INTRAMUSCULARLY ONCE MONTHLY 06/30/19 23 Active Active Problems No known active problems Immunizations Immunization Administration Dates Next Due INFLUENZA VACCINE HIGH DOSE QUADRIVALENT 65 YR UP PF IM 02/12/2022,03/13/2021 Family History Medical History Relation Name Comments Heart Attack Brother Heart Disease Brother Prostate Cancer Father Heart Disease Son 1 High Cholesterol Son 2 Relation Name Status Comments Brother Daughter Alive Father Mother Alive Son 1 Alive Son 2 Alive Social History Tobacco Use Types Packs/Day Years Used Date Smoking Tobacco: Never Smokeless Tobacco: Never Tobacco Cessation:Counseling Given: Not Answered Alcohol Use Standard Drinks/Week Comments Yes 12 (1 standard drink = 0.6 oz pu re alcohol) Sex and Gender Information Value Date Recorded Sex Assigned at Not on file Legal Sex Male 9:03 AM BEARING GRINDER Gender Identity Not on file Sexual Orientation Not on file Last Filed Vital Signs Vital Sign Reading Time Taken Comments Blood Pressure 125/74 10/18/2022 1:01 PM CDT Pulse 76 10/18/2022 1:01 PM CDT Temperature 36.1 C (97 F) 10/18/2022 1:01 PM CDT Respiratory Rate 10 10/18/2022 1:01 PM CDT Oxygen Saturation 98% 10/18/2022 1:01 PM CDT Inhaled Oxygen Concentration - - Weight 96.6 kg (213 lb) 10/18/2022 1:01 PM CDT Height - - Body Mass Index - - Plan of Treatment Health Maintenance Due Date Last Done Comments DTAP/TDAP/TD VACCINES (1 - Tdap) 1966 PNEUMOCOCCAL VACCINE 50+ YEA RS (1 of 1 - PCV) 1997 ZOSTER VACCINE (1 of 2) 1997 RSV VACCINE (60+ or ) (1 - 1-dose 75+ series) 2022 INFLUENZA VACCINE (#1) 2023 02/12/2022, 2020 Insurance MEDICARE PART A AND B
--- OUTSIDE RECORDS SUMMARY | 2024-08-03 10:36 | XMS_ITS | Clinical Summary ---
Author Organization [facility] Address [address] [place] [address] Care Team Providers Care Spanish Interpreter/Translator Name Role Phone Mary Contreras INSURANCE SALES MANAGER Primary Care Provider [phone] Social History Tobacco Use Types Packs/Day Years Used Date Smoking Tobacco: Never Assessed Sex and Gender Information Value Date Recorded Sex Assigned at Not on file Legal Sex Male 8:47 PM CDT Gender Identity Not on file Sexual Orientation Not on file Plan of Treatment Health Maintenance Due Date Last Done Comments Hepatitis C 1965 DTaP, Tdap and Td Vaccines (1 - Tdap) 1966 Zoster Vaccines (1 of 2) 1997 Annual Medicare Wellness Visit 2012 Pneumococcal Vaccine: 65+ Years (1 of 1 - PCV) 2012 RSV Immunization or 60+ Years (1 - 1-dose 75+ series) 2022 COVID-19 Vaccine ( season) 2024 08/26/2021, 02/09/2021, 07/08/2020, Additional history exists Influenza Adult (#1) 2024 03/01/2017 Meningococcal B Vaccine Aged Out No l onger eligible based on patient's age to complete this topic Meningococcal Vaccine Aged Out No dominick lei eligible based on patient's age to complete this topic RSV Immunizations Under 20 Months Aged Out No longer eligible based on patient's age to complete this topic Insurance MEDICARE [facility] Care Teams Spanish Interpreter/Translator Relationship Specialty Start Date End Date Mary Contreras FNP PCP - General Nurse Practitioner Family 09/30/21
--- OUTSIDE RECORDS SUMMARY | 2024-08-03 10:36 | XMS_ITS | Encounter Summary ---
Author Organization [facility] Address [address] [place] [address] Phone Care Team Providers Care Dining Car Waiter/Waitress Name Role Phone Shade Maya MD Primary Care Provider Mike Dodd MD Primary Care Provider Delvis Amato WOODEN FENCE ERECTOR Unavailable [phone] Encounter Details Date Type Department Care Team (Late st Contact Info) Description 02/28/2017 Orders Only [facility]IN[facility]V Provider, MD Mary [address] [place] [address] Social History Tobacco Use Types Packs/Day Years Used Date Smoking Tobacco: Never Sex and Gender Information Value Date Recorded Sex Assigned at Not on file Legal Sex Male 7:30 AM TECHNICAL INTERN Gender Identity Male 10/09/2019 12:13 PM CDT Sexual Orientation Straight 10/09/2019 12 :13 PM CDT documented as of this encounter Plan of Treatment Not on file documented as of this encounter Procedures Procedure Name Priority Date/Time Associated Diagnosis Comments CARDIOLOGY REPORT 02/28/2017 documented in this encounter Results * CARDIOLOGY REPORT (02/28/2017) Anatomical Region Laterality Modality Other Narrative 02/28/2017 Ordered by an unspecified provider. us Historical Provider [facility] Final Result documented in this encounter Visit Diagnoses Not on filedocumented in this encounter Care Teams Dining Car Waiter/Waitress Relationship Specialty Start Date End Date Shade Maya MD [address] [place] [address] PCP - General 02/28/17 05/30/23 Mike Dodd MD [address] [facility] 2 [place] [address] PCP - General Family Practice 05/31/23 [place] [address] [address] Nurse Practitioner Nurse Practitioner 01/09/24 documented as of this encounter
--- OUTSIDE RECORDS SUMMARY | 2024-08-03 10:36 | XMS_ITS | Clinical Summary ---
Author Organization [facility] Address [address] [place] [address] Phone Care Team Providers Care Cafeteria Manager Name Role Phone Mike Dodd MD Primary Care Provider Allergies Active Allergy Reactions Criticality Noted Date Comments Ciprofloxacin Unknown 07/14/2021 Lisinopril Unknown 07/14/2021 Medications pregabalin (LYRICA) 100 MG Capsule Take 100 mg by mouth 3 times daily. 0 06/30/2021 Active aspirin EC 81 MG Tablet Delayed Response Take 81 mg by mouth daily. Active amLODIPine (NORVASC) 10 MG Tablet Take 10 mg by mouth daily. Active atorvastatin (LIPITOR) 40 MG Tablet Take 40 mg by mouth daily. Active levothyroxine (SYNTHROID) 75 MCG Tablet Take 75 mcg by mouth daily. Active losartan (COZAAR) 100 MG Tablet Take 100 mg by mouth daily. Active metoprolol tartrate (LOPRESSOR) 25 MG Tablet Take 25 mg by mouth 2 times daily. Active Levomefolate Calcium Powder by Does not apply route. Active Immunizations Immunization Administration Dates Next Due Influenza, High-dose, Quadrivalent 02/12/2022, Family History Medical History Relation Name Comments Heart Disease Brother Cancer Father Relation Name Status Comments Brother Father Social History Tobacco Use Types Packs/Day Years Used Date Smoking Tobacco: Never Smokeless Tobacco: Never Alcohol Use Standard Drinks/Week Comments Yes 4 (1 standard drink = 0.6 oz pur e alcohol) Sex and Gender Information Value Date Recorded Sex Assigned at Not on file Legal Sex Male 11:21 AM STRATEGIC SOURCING SPECIALIST Gender Identity Not on file Sexual Orientation Not on file Last Filed Vital Signs Vital Sign Reading Time Taken Comments Blood Pressure 126/80 08/14/2021 2:02 PM CDT Pulse 88 08/14/2021 2:02 PM CDT Temperature 36.3 C (97.3 F) 08/14/2021 2:02 PM CDT Respiratory Rate 18 08/14/2021 2:02 PM CDT Oxygen Saturation 96% 08/14/2021 2:02 PM CDT Inhaled Oxygen Concentration - - Weight 102.3 kg (225 lb 9.6 oz) 08/14/2021 2:02 PM CDT Height 182.9 cm (6') 08/14/2021 2:02 PM CDT Body Mass Index 30.6 08/14/2021 2:02 PM CDT Plan of Treatment Health Maintenance Due Date Last Done Comments Hepatitis C Virus (HCV) Screening 1945 TdaP Immunization 1945 Pneumococcal Immunization (5 0+ years) (1 of 1 - PCV) 1997 Zoster Immunization (1 of 2) 1997 Respiratory Syncytial Virus (RSV) Immunization (Adult) (1 - 1-dose 75+ series) 2022 Influenza Immunization (#1) 01/15/202401/16, 03/13/2021, 03/01/2017 SARS-COV-2 Immunization ( season) 2024 02/09/2021, 07/08/2020, 06/14/2020 Hepatitis B Immunization Aged Out No longer eligible based on patient's age to complete this topic Meningococcal Immunization (ACWY) Aged Out No longer eligible b ased on patient's age to complete this topic Rotavirus Immunization Aged Out No lo nger eligible based on patient's age to complete this topic Insurance MEDICARE [facility] Care Teams Cafeteria Manager Relationship Specialty Start Date End Date Mike Dodd MD PCP - General Family Medicine 07/03/21
--- OUTSIDE RECORDS SUMMARY | 2024-08-03 10:36 | XMS_ITS | Encounter Summary ---
Author Organization [facility] Address [address] [place] [address] Phone Care Team Providers Care Field Crop Farmer Name Role Phone Shade Maya MD Primary Care Provider [phone] Mike Dodd MD Primary Care Provider Delvis Amato PHOTOGRAMMETRIC COMPILATION SPECIALIST Unavailable [phone] Encounter Details Date Type Department Care Team (Late st Contact Info) Description 02/26/2016 Orders Only [facility]INCONV Provider, MD Mary [address] [place] [address] Social History Tobacco Use Types Packs/Day Years Used Date Smoking Tobacco: Never Assessed Sex and Gender Information Value Date Recorded Sex Assigned at Not on file Legal Sex Male 7:30 AM GROUP SEGMENT CONSULTANT Gender Identity Male 10/09/2019 12:13 PM CDT Sexual Orientation Straight 10/09/2019 12 :13 PM CDT documented as of this encounter Plan of Treatment Not on file documented as of this encounter Procedures Procedure Name Priority Date/Time Associated Diagnosis Comments CARDIOLOGY REPORT 02/26/2016 documented in this encounter Results * CARDIOLOGY REPORT (02/26/2016) Anatomical Region Laterality Modality Other Narrative 02/26/2016 Ordered by an unspecified provider. us Historical Provider [facility] Final Result documented in this encounter Visit Diagnoses Not on filedocumented in this encounter Care Teams Field Crop Farmer Relationship Specialty Start Date End Date Shade Maya MD [address] [place] [address] PCP - General 02/28/17 05/30/23 Mike Dodd MD [address] [facility] 2 [place] [address] PCP - General Family Practice 05/31/23 [place] [address] [address] Nurse Practitioner Nurse Practitioner 01/09/24 documented as of this encounter
--- OUTSIDE RECORDS SUMMARY | 2024-08-03 10:36 | XMS_ITS | Encounter Summary ---
Author Organization [facility] Address [address] [place] [address] Phone Care Team Providers Care Extension Educator Name Role Phone Shade Maya MD Primary Care Provider [phone] Mike Dodd MD Primary Care Provider Delvis Amato COAT CUTTER Unavailable [phone] Encounter Details Date Type Department Care Team (Late st Contact Info) Description 06/12/2015 Orders Only [facility] Provider, MD Mary [address] [place] [address] Social History Tobacco Use Types Packs/Day Years Used Date Smoking Tobacco: Never Assessed Sex and Gender Information Value Date Recorded Sex Assigned at Not on file Legal Sex Male 7:30 AM PATIENT SAFETY MANAGER Gender Identity Male 10/09/2019 12:13 PM CDT Sexual Orientation Straight 10/09/2019 12 :13 PM CDT documented as of this encounter Plan of Treatment Not on file documented as of this encounter Procedures Procedure Name Priority Date/Time Associated Diagnosis Comments CARDIOLOGY REPORT 06/12/2015 documented in this encounter Results * CARDIOLOGY REPORT (06/12/2015) Anatomical Region Laterality Modality Other Narrative 06/12/2015 Ordered by an unspecified provider. us Historical Provider [facility]EL[facility] Final Result documented in this encounter Visit Diagnoses Not on filedocumented in this encounter Care Teams Extension Educator Relationship Specialty Start Date End Date Shade Maya MD [address] [place] [address] PCP - General 02/28/17 05/30/23 Mike Dodd MD [address] [facility] 2 [place] [address] PCP - General Family Practice 05/31/23 [place] [address] [address] Nurse Practitioner Nurse Practitioner 01/09/24 documented as of this encounter
--- OUTSIDE RECORDS SUMMARY | 2024-08-03 10:36 | XMS_ITS | CONTINUITY OF CARE DOCUMENT ---
Author Name [email or web address] Address Unknown Organization [facility] Office Address [address] [place] [address] Phone [phone] Care Team Providers Care Paraplanner Name Role Phone Raymond SAUNDERS, Vineet Unavailable ROBERTO ESQUEDA MD Unavailable [phone] ROBERTO ESQUEDA MD Unavailable [phone] PROBLEMS Condition Status Date Provider Notes Palpitations active Vineet Andrade MD Lightheadedness active Vineet Andrade MD Shortness of breath active Vineet Andrade MD Premature atrial beats active Vineet Andrade MD ENCOUNTERS Date Type Provider Location Encounter Diag nosis - In-person encounter Office Visit Vineet Andrade MD [facility] PalpitationsLightheadednessShortness of breathPremature atrial beats VITAL SIGNS Date Observation Value Provider Body Mass Index (Ratio) 28.48 kg/m2 Rajani Andrade MD blood pressure, diastolic 70 mm[Hg] Us pavel Andrade MD blood pressure, systolic 116 mm[Hg] Chris Andrade MD pulse rate 56 /min Vineet Andrade MD oxygen saturation, oximetry 97 % Vineet Andrade MD respiratory rate E&M 16 /min Vineet nunez MD weight E&M 210 [lb_av] Vineet Andrade MD height E&M 72 [in_i] Vineet Andrade MD ALLERGIES Allergy Name Onset Date Reaction Criticality Status LISINOPRIL High Criticality active CIPRO High Criticality active HISTORY OF MEDICATION USE Medication Status Instructions Dates Provider Indications Com ments LOSARTAN POTASSIUM 100 MG ORAL TABLET active Vineet Andrade MD LEVOTHYROXINE SODIUM 50 MCG ORAL TABLET active Vineet Andrade MD AMLODIPINE BESYLATE 10 MG ORAL TABLET active ONE TAB. 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 A lcohol Use - yes (3-4 glasses/day) R egular Exercise - yes (5-6 times per week) D rug Use - no Smoking History: Trish cervantes has never smoked. Vineet Andrade MD drug use no Vineet Andrade MD smoking status Never smoker Vineet Andrade MD FAMILY HISTORY Family Member Condition Full Brother Family History of Co ronary Artery Disease: INSURANCE PROVIDERS Payer name Policy type / Coverage type Elbert red green party ID [facility] [id number] [place] MEDIC[place] Medicare [id number] TREATMENT PLAN Date Name Sleep Study
--- OUTSIDE RECORDS SUMMARY | 2024-08-03 10:36 | XMS_ITS | Clinical Summary ---
Author Organization [facility] Medical [facility] 2 Address [address] [facility] [place] [address] Care Team Providers Care Geothermal Operations Manager Name Role Phone Mike Dodd MD Primary Care Provider Delvis Amato STRATEGIC ACCOUNTS MANAGER Unavailable [phone] Allergies Active Allergy Reactions Criticality Noted Date [...] 03/31/2023 Assessment & Plan (03/29/2024 11:20 AM NUCLEAR PLANT EQUIPMENT OPERATOR): -Dual chamber pacemaker is functioning appropriately as programmed -Lead impedances, sensing, and thresholds are stable -No programming changes -Continue remote monitoring quarterly -Follow up in 1 year for device check Assessment & Plan (03/31/2023 11:13 AM NUCLEAR PLANT EQUIPMENT OPERATOR): Dual chamber pacemaker is functioning appropriately as programmed Lead impedances, sensing, and thresholds are stable No programming changes Continue remote monitoring quarterly Follow up in 1 year for device check SSS (sick sinus syndrome) 03/06/2018 Assessment & Plan (03/29/2024 11:20 AM NUCLEAR PLANT EQUIPMENT OPERATOR): -Sinus node dysfunction s/p dual chamber pacemaker (Medtronic) 02/2015 Assessment & Plan (03/31/2023 11:12 AM NUCLEAR PLANT EQUIPMENT OPERATOR): Sinus node dysfunction s/p dual chamber pacemaker (Medtronic) 02/2015 Assessment & Plan (04/06/2022 1:27 PM NUCLEAR PLANT EQUIPMENT OPERATOR): Sinus node dysfunction s/p dual chamber pacemaker 02/2015 Dual chamber pacemaker is functioning appropriately as programmed Lead impedances, sensing, and thresholds are stable No programming changes Continue remote monitoring quarterly Follow up in 1 year for device check NSVT (nonsustained ventricular tachycardia) 02/14 Assessment & Plan (03/29/2024 11:20 AM NUCLEAR PLANT EQUIPMENT OPERATOR): -Continue metoprolol Hypertension 12/04/2015 Typical atrial flutter 12/04/2015 Assessment & Plan (03/29/2024 11:20 AM NUCLEAR PLANT EQUIPMENT OPERATOR): -Atrial flutter s/p CTI-dependent flutter ablation by Dr. Johnson in 12/2015 -No recurrent atrial arrhythmias on device interrogation -Continue metoprolol 25 mg BID Assessment & Plan (03/31/2023 11:13 AM NUCLEAR PLANT EQUIPMENT OPERATOR): Atrial flutter s/p CTI-dependent flutter ablation by Dr. Johnson in 12/2015 No recurrent atrial arrhythmias on device interrogation Continue metoprolol 25 mg BID Assessment & Plan (04/06/2022 1:26 PM NUCLEAR PLANT EQUIPMENT OPERATOR): Atrial flutter s/p CTI-dependent flutter ablation by Dr. Johnson in 12/2015 No recurrent atrial arrhythmias on device interrogation Continue aspirin daily and metoprolol 25 mg BID Encounters Date Type Department Care Team Description 06/06/2024 Orders Only [facility] Cardiology [address] [facility] 8th [place] [address] [place] [address] Abel Levy MD from Last 3 Months Surgical History Surgery Date Site/Laterality Comments INSERT / REPLACE / REMOVE PACEMAKER CARDIAC ELECTROPHYSIOLOGY MAPPING AND ABLATION Medical History Medical History Date Comments Cancer (HCC) Prostate cancer (HCC) Pacemaker History of cardiac radiofrequency ablation (RFA) Hypertension Arthritis Thyroid disease Family History Medical History Relation Name Comments Heart attack Brother Prostate cancer Father Arthritis Mother Heart disease Mother Urinary tract infection Mother Relation Name Status Comments Brother Father Mother Alive Social History Tobacco Use Types Packs/Day Years Used Date Smoking Tobacco: Never Smokeless Tobacco: Never Tobacco Cessation:Counseling Given: Not Answered Sex and Gender Information Value Date Recorded Sex Assigned at Not on file Legal Sex Male 7:30 AM NUCLEAR PLANT EQUIPMENT OPERATOR Gender Identity Male 10/09/2019 12:13 PM CDT Sexual Orientation Straight 10/09/2019 12 :13 PM CDT Obstetrics History Last Filed Vital Signs Vital Sign Reading Time Taken Comments Blood Pressure 138/84 03/29/2024 11:19 AM NUCLEAR PLANT EQUIPMENT OPERATOR Pulse 89 03/29/2024 11:19 AM NUCLEAR PLANT EQUIPMENT OPERATOR Temperature 36.8 C (98.2 F) 01/13/2024 9:12 AM CDT Respiratory Rate 18 02/02/2024 12:59 PM CDT Oxygen Saturation 91% 03/29/2024 11:19 AM NUCLEAR PLANT EQUIPMENT OPERATOR Inhaled Oxygen Concentration - - Weight 93.4 kg (206 lb) 03/29/2024 11:19 AM NUCLEAR PLANT EQUIPMENT OPERATOR Height 182.9 cm (6') 03/29/2024 11:19 AM NUCLEAR PLANT EQUIPMENT OPERATOR Body Mass Index 27.94 03/29/2024 11:19 AM NUCLEAR PLANT EQUIPMENT OPERATOR Plan of Treatment Health Maintenance Due Date Last Done Comments Depression Screening 1945 Hepatitis C Screening 1945 DTaP/Tdap/Td Vaccine (1 - Tdap) 1958 Hepatitis B Screening 1965 Pneumococcal vaccine 65+ (1 of 1 - PCV) 1997 Zoster Vaccine (1 of 2) 1997 Well Visit 65+ 2012 Influenza Vaccine (#1) 2024 03/01/2017, 2014 Fall Risk Assessment 02/01/2025 02/02/2024 Procedures Procedure Name Priority Date/Time Associated Diagnosis Comments DEVICE CHECK - REMOTE Routine 06/06/2024 1:25 PM NUCLEAR PLANT EQUIPMENT OPERATOR from Last 3 Months Results * DEVICE CHECK - REMOTE (06/06/2024 1:25 PM NUCLEAR PLANT EQUIPMENT OPERATOR) Anatomical Region Laterality Modality Other 06/06/2024 1:25 PM NUCLEAR PLANT EQUIPMENT OPERATOR Narrative 07/22/2024 11:24 PM CDT Interpretation Summary: Battery and Leads (BL) Normal parameters noted on battery and lead(s) --- One year remaining longevity (implanted 2014). Lead impedance, threshold, and RV sensing trends stable and appropriate. No short V-V intervals. P wave out of range --- P wave 0.3 mV. Per trend, measurements are typically low. Atrial sensitivity is programmed 0.3 mV. Presenting Rhythm (WV) Atrial Pacing-Ventricular Sensing (AP-VS) --- AP/VS 68 [...] sensitivity is programmed 0.3 mV. Presenting Rhythm (WV) Atrial Pacing-Ventricular Sensing (AP-VS) --- AP/VS 68 [...] us Abel Levy MD [facility] Final Result from Last 3 Months Insurance MEDICARE [facility] MEDICARE [employer] Care Teams Geothermal Operations Manager Relationship Specialty Start Date End Date Mike Dodd MD [address] [facility] [place] [address] [place] [address] PCP - General Family Practice 05/31/23 [place] [address] [address] [facility] [address] [place] [address] Nurse Practitioner Nurse Practitioner 01/09/24
[2024-08-03 13:40] LABS: Basophils Absolute Auto 0.1 K/mm3 (0.0-0.1); Basophils Percent Auto 1.1 % (0.2-1.2); Eosinophils Absolute Auto 0.5 K/mm3 (0-0.3); Hemoglobin 17.1 g/dL (14.0-18.0); Immature Granulocyte Absolute 0.04 K/mm3 (0.00-0.031); Immature Granulocyte Percent A 0.7 % (0-0.5); Lymphocytes Absolute Auto 2.71 K/mm3 (0.9-3.2); Lymphocytes Percent Auto 48.2 % (18.3-44.2); Mean Corpuscular HGB Conc 33.5 g/dl (32-36); Mean Corpuscular Hemoglobin 33.3 pg (26-34); Mean Corpuscular Volume 99.2 fl (80-100); Mean Platelet Volume 11.8 fl (7.4-10.4); Monocytes Absolute Auto 0.8 K/mm3 (0.1-0.6); Monocytes Percent Auto 13.9 % (2.6-8.5); Neutrophils Absolute Auto 1.6 K/mm3 (1.3-6.7); Neutrophils Percent Auto 28.1 % (45.5-73.1); Platelet Count Result 129 k/mm3 (150-375); Red Blood Count 5.14 M/mm3 (4.6-6.20); Red Cell Distribution Width 13.2 % (11.5-14.5); White Blood Count 5.6 K/mm3 (4.5-10.0)
[2024-08-03 14:06] LABS: Alanine Aminotransferase 57 U/L (6-50); Albumin Level 4.3 g/dL (3.5-5.1); Alkaline Phosphatase 60 U/L (38-126); Anion Gap 12 mmol/L (4-12); Aspartate Amino Transferase 84 U/L (17-59); Bilirubin,Total 0.9 mg/dL (0.2-1.3); Carbon Dioxide 25 mmol/L (22-30); Chloride 102 mmol/L (98-107); Cholesterol 165 mg/dL (0-200); Glucose 82 mg/dL (65-110); HDL Direct 43 mg/dL; Potassium 4.2 mmol/L (3.4-5.0); Sodium 139 mmol/L (137-145); Triglycerides 171 mg/dL (<150)
[2024-08-03 14:13] LABS: Blood Urea Nitrogen 15 mg/dL (9-20); Estimated Glomerular Filt Rate > 60
[2024-08-03 14:22] LABS: LDL Cholesterol Direct 83 mg/dL
[2024-08-03 14:25] LABS: Free T4 Free Thyroxine 1.09 ng/dL (0.78-2.19)
== END 2024-08-03 09:30 | disposition home or self-care (01) ==
LOC: ANHGOSHLAB 09:31
PROVIDERS: PCP Family Medicine; Visit Provider Nurse Practitioner Family
DX: E78.5 Hyperlipidemia, unspecified (principal); E03.9 Hypothyroidism, unspecified; I10 Essential (primary) hypertension; E55.9 Vitamin D deficiency, unspecified
CPT/HCPCS: 36415; 80053; 80061; 82306; 84439; 84443; 85025

== ENCOUNTER 2024-12-28 11:03 | Outpatient (CLI) | payer MEDICARE, SELFPAY ==
--- OUTSIDE RECORDS SUMMARY | 2024-12-28 11:06 | XMS_ITS | Clinical Summary ---
Author Organization [facility] Address [address] [place] [address] Care Team Providers Care Elderly Caregiver Name Role Phone Mary Contreras ADMINISTRATION INTERNSHIP Primary Care Provider [phone] Social History Tobacco Use Types Packs/Day Years [...] and Td Vaccines (1 - Tdap) 1966 Pneumococcal Vaccine: 50+ Years (1 of 1 - PCV) 1997 Zoster Vaccines (1 of 2) 1997 Annual Medicare Wellness Visit 2012 RSV Immunization or 60+ Years (1 - 1-dose 75+ series) 2022 COVID-19 Vaccine ( season) 2024 08/26/2021, 02/09/2021, 07/08/2020, Additional history exists Meningococcal B Vaccine Aged Out No l onger eligible based on patient's age to complete this topic Meningococcal Vaccine Aged Out No dominick lei eligible based on patient's age to complete this topic RSV Immunizations Under 20 Months Aged Out No longer eligible based on patient's age to complete this topic Insurance MEDICARE [facility] Care Teams Elderly Caregiver Relationship Specialty Start Date End Date Mary Contreras FNP PCP - General Nurse Practitioner Family 09/30/21
--- OUTSIDE RECORDS SUMMARY | 2024-12-28 11:06 | XMS_ITS | Clinical Summary ---
Author Organization [facility] Address [address] [place] [address] Phone Care Team Providers Care Oil Dipper Name Role Phone Mike Dodd MD Primary [...] on file Legal Sex Male 11:21 AM ECMO SPECIALIST Gender Identity Not on file Sexual [...] (Adult) (1 - 1-dose 75+ series) 2022 SARS-COV-2 Immunization ( - season) 2024 02/09/2021, 07/08/2020, 06/14/2020 Influenza Immunization (#1) 01/14/202501/16, 03/13/2021, 03/01/2017 Hepatitis B Immunization Aged Out No longer eligible based on patient's age to complete this topic Human Papillomavirus (HPV) Immunization Aged Out No longer eligible b ased on patient's age to complete this topic Meningococcal Immunization (ACWY) Aged Out No longer eligible b ased on patient's age to complete this topic Rotavirus Immunization Aged Out No lo nger eligible based on patient's age to complete this topic Insurance MEDICARE [facility] Care Teams Oil Dipper Relationship Specialty Start Date End Date Mike Dodd MD PCP - General Family Medicine 07/03/21
--- OUTSIDE RECORDS SUMMARY | 2024-12-28 11:06 | XMS_ITS | Encounter Summary ---
Author Organization [facility] Address [address] [place] [address] Phone Care Team Providers Care Gas Pipe Layer Name Role Phone Shade Maya MD Primary Care Provider [phone] Mike Dodd MD Primary Care Provider Delvis Amato LOGISTICS TEAM LEADER Unavailable [phone] Encounter Details Date Type Department Care Team (Late st Contact Info) Description 02/28/2017 Orders Only [facility] Provider, MD Mary [address] [place] [id number] Social History Tobacco Use Types Packs/Day Years Used Date Smoking Tobacco: Never Sex and Gender Information Value Date Recorded Sex Assigned at Not on file 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 Infection Prevention will arrange screening. Please contact Infection Prevention. 11/10/2024 11/10/2024 11/10/2024 5:57 PM C DT documented as of this encounter Care Teams Gas Pipe Layer Relationship Specialty Start Date End Date Shade Maya MD [address] [place] [id number] PCP - General 02/28/17 05/30/23 Mike Dodd MD [address] [facility] [address] [place] [address] PCP - General Family Practice 05/31/23 [place] [address] [address] Nurse Practitioner Nurse Practitioner 01/09/24 documented as of this encounter
--- OUTSIDE RECORDS SUMMARY | 2024-12-28 11:06 | XMS_ITS | Encounter Summary ---
Author Organization [facility] Address [address] [place] [address] Phone Care Team Providers Care Chimney Repairer Name Role Phone Shade Maya MD Primary Care Provider [phone] Mike Dodd MD Primary Care Provider Delvis Amato WASHHOUSE WORKER Unavailable [phone] Encounter Details Date Type Department Care Team (Late st Contact Info) Description 02/26/2016 Orders Only [facility] Provider, MD Mary [address] [place] [address] Social History Tobacco Use Types Packs/Day Years Used Date Smoking Tobacco: Never Assessed Sex and Gender Information Value Date Recorded Sex Assigned at Not on file 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 Historical Provider [...] documented as of this encounter Care Teams Chimney Repairer Relationship Specialty Start Date End Date Shade Maya MD [address] [address] PCP - General 02/28/17 05/30/23 Mike Dodd MD [address] [facility] [address] [place] [address] PCP - General Family Practice 05/31/23 [place] [address] [address] [facility] [address] [place] [address] Nurse Practitioner Nurse Practitioner 01/09/24 documented as of this encounter
--- OUTSIDE RECORDS SUMMARY | 2024-12-28 11:06 | XMS_ITS | Encounter Summary ---
Author Organization [facility] Address [address] [place] [address] Phone Care Team Providers Care Feed Mill Operator Name Role Phone Mike Dodd MD Primary Care Provider Delvis Amato NP Unavailable [phone] Encounter Details Date Type Department Care Team (Late st Contact Info) Description 12/19/2024 Results Follow-Up [facility] [address] [facility] [address] [place] [address] [place] [address] Emma Saxena NP [address] [facility] [address] [place] [address] ECG 12 lead Social History Tobacco Use Types Packs/Day Years Used Date Smoking Tobacco: Never Smokeless Tobacco: Never AUDIT-C Answer Date Recorded Q1: How often do you have a drink containing alcohol? 4 or more times a week 11/13/2024 Q2: How many drinks containi ng alcohol do you have on a typical day when you are drinking? 1 or 2 Q3: How often do you have si x or more drinks on one occasion? Never 11/13/2024 Personal Safety Answer Date Recorded Have you ever been in or are you currently in a harmful physical or emotional relationship or is someone making you feel afraid or unsafe? 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
--- OUTSIDE RECORDS SUMMARY | 2024-12-28 11:06 | XMS_ITS | Clinical Summary ---
Author Organization [facility] Medical [facility] 2 Address [address] [facility] [place] [address] Care Team Providers Care Rf Technician Name Role Phone Mike Dodd MD Primary Care Provider Delvis Amato RUG WEAVER Unavailable [phone] Allergies Active Allergy Reactions Criticality Noted Date Comments Ciprofloxacin Lisinopril Cough Low Medications levothyroxine (SYNTHROID) 75 mcg tablet 01/01/20 19 Active testosterone cypionate (DEPO-TESTOTER ONE) 200 mg/mL injection INJECT 3ML INTRAMUSCULARLY MONTHLY 04/02/20 22 Active apixaban (ELIQUIS) 5 mg tablet Take 1 tablet (5 mg total) by mouth 2 (two) times a day 60 tablet 09/04/19 25 Active metoprolol tartrate (LOPRESSOR) 25 mg immediate release tablet Take 1 tablet (25 mg total) by mouth 2 (two) times a day 60 tablet 1 11/14/19 25 01/12/ 025 Active losartan (COZAAR) 25 mg tablet Take 1 tablet (25 mg total) by mouth daily 30 tablet 1 11/14/19 25 025 Active sotaloL (BETAPACE) 80 mg tablet Take 1 tablet (80 mg total) by mouth 2 (two) times a day 60 tablet 1 11/14/19 25 01/12/ 025 Active atorvastatin (LIPITOR) 80 mg tablet Take 1 tablet (80 mg total) by mouth nightly 30 tablet 1 11/14/19 25 025 Active Active Problems Problem Noted Date Diagnosed Date HLD (hyperlipidemia) 11/11/2024 Assessment & Plan (11/13/2024 10:04 AM CDT): Previously on statin, stopped following significant weight loss. LDL 98 here - resume atorva 80mg Assessment & Plan (11/12/2024 6:55 AM CDT): Previously on statin, stopped following significant weight loss. LDL 98 here - resume atorva 80mg Assessment & Plan (11/11/2024 8:49 AM CDT): Previously on statin, stopped following significant weight loss. LDL 98 here - resume atorva 80mg A-fib 11/10/2024 Assessment & Plan (11/13/2024 10:04 AM CDT): Pt w/ hx of afib/aflutter. S/p ablation 2015. He has not had any symptoms such as chest pain, shortness of breath, cough. He endorses not having missed any of his eliquis doses. - Per EP: - c/w 80mg sotalol BID, will titrate up as tolerated - Hold for EKG w/ QTc >500 - decrease metoprolol - if not converted on sotalol by 11/13, consider GAEL w/ cardioversion - c/w eliquis - CTM tele, daily BMP Assessment & Plan (11/12/2024 9:56 AM CDT): Pt w/ hx of afib/aflutter. S/p ablation 2015. He has not had any symptoms such as chest pain, shortness of breath, cough. He endorses not having missed any of his eliquis doses. - Per EP: - c/w 80mg sotalol BID, will titrate up as tolerated - Hold for EKG w/ QTc >500 - decrease metoprolol - if not converted on sotalol by 11/13, consider GAEL w/ cardioversion - c/w eliquis - CTM tele, daily BMP Assessment & Plan (11/11/2024 8:49 AM CDT): Pt w/ hx of afib/aflutter. S/p ablation 2016. He has not had any symptoms such as chest pain, shortness of breath, cough. He endorses not having missed any of his eliquis doses. - Per EP: - c/w 80mg sotalol BID, will titrate up as tolerated - Hold for EKG w/ QTc >500 - decrease metoprolol - c/w eliquis - CTM tele, daily BMP Assessment & Plan (11/10/2024 6:52 PM CDT): Pt w/ hx of afib/aflutter. S/p ablation 2016. He has not had any symptoms such as chest pain, shortness of breath, cough. He endorses not having missed any of his eliquis doses. - Per EP: - start w/ 80mg sotalol BID, will titrate up as tolerated - Hold for EKG w/ QTc >500 - c/w eliquis - CTM tele, daily BMP Atrial fibrillation and flutter 10/30/2024 Assessment & Plan (12/19/2024 11:27 AM CDT): -Atrial flutter s/p CTI-dependent flutter ablation by Dr. Johnson in 12/2015 -Symptomatic atrial fibrillation/flutter s/p GAEL DCCV 09/11/2024. -Persistent atypical flutter 09/2024, symptomatic with fatigue and SOB, referred for sotalol load -Sotalol load and cardioversion 11/13/2024 -He remains in sinus rhythm and SOB/fatigue have improved -Renal function and QT interval are stable, QTc 431 ms -Continue sotalol 80 mg BID and metoprolol tartrate 25 mg BID -EKG and BMP every 6 months for monitoring of side effects/toxicities of high risk medication sotalol -Continue Eliquis 5 mg twice daily for stroke risk reduction -Encouraged lifestyle modifications including regular physical exercise, maintaining a healthy weight, limiting alcohol intake, BP control to reduce AF recurrence Assessment & Plan (10/30/2024 4:21 PM CDT): -Symptomatic atrial fibrillation/flutter s/p GAEL DCCV 09/11/2024. -He felt better in sinus rhythm but his atrial arrhythmias recurred mid September and have been persistent since then -We discussed rhythm control options for his atrial arrhythmias including antiarrhythmic drug load (sotalol/dofetilide) or catheter ablation -He is interested in AAD load +/- cardioversion, we will contact him to schedule -Continue Eliquis 5 mg twice daily for stroke risk reduction -Baseline CMP, TSH today Cervical spinal stenosis 05/31/2023 Cervical radiculopathy 05/31/2023 Pacemaker 03/31/2023 Assessment & Plan (12/19/2024 11:26 AM CDT): -Dual chamber pacemaker is functioning appropriately as programmed -Lead impedances, sensing, and thresholds are stable -No programming changes -Continue remote monitoring quarterly Assessment & Plan (10/30/2024 4:17 PM CDT): -Dual chamber pacemaker is functioning appropriately as programmed -Lead impedances, sensing, and thresholds are stable -No programming changes -Continue remote monitoring quarterly Assessment & Plan (03/29/2024 11:20 AM CONSTRUCTION RECRUITER): -Dual chamber pacemaker is functioning appropriately as programmed -Lead impedances, sensing, and thresholds are stable -No programming changes -Continue remote monitoring quarterly -Follow up in 1 year for device check Assessment & Plan (03/31/2023 11:13 AM CONSTRUCTION RECRUITER): Dual chamber pacemaker is functioning appropriately as programmed Lead impedances, sensing, and thresholds are stable No programming changes Continue remote monitoring quarterly Follow up in 1 year for device check SSS (sick sinus syndrome) 03/06/2018 Assessment & Plan (12/19/2024 11:26 AM CDT): -Sinus node dysfunction s/p dual chamber pacemaker ([employer]tronic) 02/2015 Assessment & Plan (10/30/2024 4:17 PM CDT): -Sinus node dysfunction s/p dual chamber pacemaker ([employer]tronic) 02/2015 Assessment & Plan (03/29/2024 11:20 AM CONSTRUCTION RECRUITER): -Sinus node dysfunction s/p dual chamber pacemaker ([employer]tronic) 02/2015 Assessment & Plan (03/31/2023 11:12 AM CONSTRUCTION RECRUITER): Sinus node dysfunction s/p dual chamber pacemaker ([employer]tronic) 02/2015 Assessment & Plan (04/06/2022 1:27 PM CONSTRUCTION RECRUITER): Sinus node dysfunction s/p dual chamber pacemaker 02/2015 Dual chamber pacemaker is functioning appropriately as programmed Lead impedances, sensing, and thresholds are stable No programming changes Continue remote monitoring quarterly Follow up in 1 year for device check NSVT (nonsustained ventricular tachycardia) 02/14 Assessment & Plan (03/29/2024 11:20 AM CONSTRUCTION RECRUITER): -Continue metoprolol Hypertension 12/04/2015 Assessment & Plan (11/13/2024 10:04 AM CDT): On losartan, metoprolol at home. Had been on amlodipine, BPs improved w/ weight loss. - c/w losartan - c/w metoprolol, monitor for hypoTN or bradycardia Assessment & Plan (11/12/2024 6:55 AM CDT): On losartan, metoprolol at home. Had been on amlodipine, BPs improved w/ weight loss. - c/w losartan - c/w metoprolol, monitor for hypoTN or bradycardia Assessment & Plan (11/11/2024 6:52 AM CDT): On losartan, metoprolol at home. Had been on amlodipine, BPs improved w/ weight loss. - c/w losartan - c/w metoprolol, monitor for hypoTN or bradycardia Assessment & Plan (11/10/2024 6:52 PM CDT): On losartan, metoprolol at home. Had been on amlodipine, BPs improved w/ weight loss. - c/w losartan - c/w metoprolol, monitor for hypoTN or bradycardia Typical atrial flutter 12/04/2015 Assessment & Plan (10/30/2024 3:56 PM CDT): -Atrial flutter s/p CTI-dependent flutter ablation by Dr. Johnson in 12/2015 Assessment & Plan (03/29/2024 11:20 AM CONSTRUCTION RECRUITER): -Atrial flutter s/p CTI-dependent flutter ablation by Dr. Johnson in 12/2015 -No recurrent atrial arrhythmias on device interrogation -Continue metoprolol 25 mg BID Assessment & Plan (03/31/2023 11:13 AM CONSTRUCTION RECRUITER): Atrial flutter s/p CTI-dependent flutter ablation by Dr. Johnson in 12/2015 No recurrent atrial arrhythmias on device interrogation Continue metoprolol 25 mg BID Assessment & Plan (04/06/2022 1:26 PM CONSTRUCTION RECRUITER): Atrial flutter s/p CTI-dependent flutter ablation by Dr. Johnson in 12/2015 No recurrent atrial arrhythmias on device interrogation Continue aspirin daily and metoprolol 25 mg BID Encounters Date Type Department Care Team Description 12/19/2024 11:00 AM CDT Office Visit [facility] [address] [place] [address] 8th [place] [address] [place] [address] Emma Saxena NP Typical atrial flutter (HCC) (Primary Dx); SSS (sick sinus syndrome) (HCC); Pacemaker; Atrial fibrillation and flutter 12/19/2024 10:15 AM CDT Ancillary Procedure [facility] [address] [place] [address] [place] [address] [place] [address] SSS (sick sinus syndrome) (HCC); Fitting and adjustment of cardiac pacemaker 12/19/2024 Results Follow-Up [facility] [address] [place] [address] [place] [address] [place] [address] Emma Saxena NP ECG 12 lead 11/13/2024 9:30 AM CDT - 11/13/2024 10:10 AM CDT Surgery [facility] [address] [address] Sameer Robbins MD CARDIOVERSION [id number] 11/13/2024 8:48 AM CDT Anesthesia Event [facility] [address] [address] Ortega Bourgeois MD 11/13/2024 Documentation [facility] [address] [place] [address] [facility] 8th [place] [address] Sameer Robbins MD 11/13/2024 Documentation [facility] [address] [place] [address] [place] [address] Sameer Robbins MD 11/10/2024 5:12 PM CDT - 11/13/2024 5:07 PM CDT Hospital Encounter [address] [address] Socrates Levy MD Patel, Namrata Nikhil, MD Longstanding persistent atrial fibrillation (HCC) (Primary Dx) Discharge Disposition: Discharge to home or self care 10/31/2024 Telephone [facility] [address] [place] [address] [place] [address] Socrates Levy MD 10/30/2024 2:30 PM CDT Lab [facility] [address] [place] [phone] Atrial fibrillation and flutter (HCC) 10/30/2024 2:00 PM CDT Office Visit [facility] [address] [place] [address] 8th [place] [address] Emma Saxena NP Secondary hypertension (Primary Dx); Atrial fibrillation and flutter (HCC); Pacemaker; SSS (sick sinus syndrome) (HCC); Typical atrial flutter (HCC) 10/30/2024 1:30 PM CDT Ancillary Procedure [facility] [address] [facility] 8th [place] [address] [place] [address] SSS (sick sinus syndrome) (HCC) (Primary Dx); Fitting or adjustment of cardiac pacemaker; 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 Results Follow-Up [facility] [facility] 8th [place] [address] [place] [id number] Emma Saxena NP ECG 12 lead, Comprehensive metabolic panel from Last 3 Months Surgical History Surgery Date Site/Laterality Comments INSERT / REPLACE / REMOVE PACEMAKER CARDIAC ELECTROPHYSIOLOGY MAPPING AND ABLATION CARDIAC ELECTROPHYSIOLOGY PROCEDURE 11/13/2024 N/A Procedure: CARDIOVERSION [id number]; Surgeon: Sameer Robbins MD; Location: [facility]; Service: Cardiovascular; Laterality: N/A; Medical History Medical History Date Comments Cancer (HCC) Prostate cancer (HCC) Pacemaker History of cardiac radiofrequency ablation (RFA) Hypertension Arthritis Thyroid disease Family History Medical History Relation Name Comments Heart attack Brother Jony Cancer Father Livan Prostate cancer Father Livan Arthritis Mother Martha Gilbert Heart disease Mother Martha Gilbert Urinary tract infection Mother Martha Gilbert Relation Name Status Comments Brother Jony Father Livan Mother Martha Gilbert Alive Social History Tobacco Use Types Packs/Day Years Used Date Smoking Tobacco: Never Smokeless Tobacco: Never Tobacco Cessation:Counseling Given: Not Answered AUDIT-C Answer Date Recorded Q1: How often [...] on file Legal Sex Male 7:30 AM CONSTRUCTION RECRUITER Gender Identity Male 10/09/2019 12:13 PM CDT Sexual Orientation Straight 10/09/2019 12 :13 PM CDT Obstetrics History Last Filed Vital Signs Vital Sign Reading Time Taken Comments Blood Pressure 152/88 12/19/2024 10:15 AM CDT Pulse 79 12/19/2024 10:15 AM CDT Temperature 36.8 C (98.2 F) 11/13/2024 3:12 PM CDT Respiratory Rate 16 11/13/2024 3:12 PM CDT Oxygen Saturation 95% 12/19/2024 10:15 AM CDT Inhaled Oxygen Concentration - - Weight 92.5 kg (204 lb) 12/19/2024 10:15 AM CDT Height 182.9 cm (6') 12/19/2024 10:15 AM CDT Body Mass Index 27.67 12/19/2024 10:15 AM CDT Plan of Treatment Health Maintenance Due Date Last Done Comments Depression Screening 1945 Hepatitis C Screening 1945 DTaP/Tdap/Td Vaccine (1 - Tdap) 1958 Hepatitis B Screening 1965 Pneumococcal vaccine 65+ (1 of 1 - PCV) 1997 Zoster Vaccine (1 of 2) 1997 Well Visit 65+ 2012 Influenza Vaccine (#1) 2025 03/01/2017, 2014 Fall Risk Assessment 11/13/2025 11/13/2024 Medical Devices Implanted Type Area Laboratory Chief Device Identifier Shelf Expiration Date Model / Serial / Lot Pacemaker Pacemaker Left: Chest Wall Procedures Procedure Name Priority Date/Time Associated Diagnosis Comments ECG 12-LEAD Routine 12/19/2024 10:17 AM CDT Typical atrial flutter (HCC) EGFR Timed 11/13/2024 10:05 AM CDT MAGNESIUM Timed 11/13/2024 10:05 AM CDT BASIC METABOLIC PANEL Timed 11/13/2024 10:05 AM CDT CARDIOVERSION Routine 11/13/2024 8:55 AM CDT Longstanding persistent atrial fibrillation (HCC) ECG 12-LEAD Routine 11/13/2024 6:36 AM CDT ECG 12-LEAD Routine 11/12/2024 11:06 PM CDT EGFR Timed 11/12/2024 9:39 PM CDT CBC WITHOUT DIFFERENTIAL Routine 11/12/2024 9:39 PM CDT MAGNESIUM Timed 11/12/2024 9:39 PM CDT BASIC METABOLIC PANEL Timed 11/12/2024 9:39 PM CDT TRANSTHORACIC ECHO (TTE) COMPLETE W DOPPLER/CF W CONTRAST Routine 11/12/2024 2:27 PM CDT EGFR Timed 11/12/2024 8:44 AM CDT MAGNESIUM Timed 11/12/2024 8:44 AM CDT BASIC METABOLIC PANEL Timed 11/12/2024 8:44 AM CDT EGFR Timed 11/12/2024 3:40 AM CDT CBC WITHOUT DIFFERENTIAL Routine 11/12/2024 3:40 AM CDT MAGNESIUM Timed 11/12/2024 3:40 AM CDT BASIC METABOLIC PANEL Timed 11/12/2024 3:40 AM CDT ECG 12-LEAD Routine 11/11/2024 11:07 PM CDT ECG 12-LEAD Routine 11/11/2024 11:04 AM CDT EGFR Timed 11/11/2024 9:12 AM CDT MAGNESIUM Timed 11/11/2024 9:12 AM CDT BASIC METABOLIC PANEL Timed 11/11/2024 9:12 AM CDT ECG 12-LEAD Routine 11/10/2024 11:13 PM CDT EGFR Routine 11/10/2024 6:39 PM CDT HEMOGLOBIN A1C Routine 11/10/2024 6:39 PM CDT CBC WITHOUT DIFFERENTIAL Routine 11/10/2024 6:39 PM CDT LIPID PANEL Routine 11/10/2024 6:39 PM CDT PHOSPHORUS Routine 11/10/2024 6:39 PM CDT MAGNESIUM Timed 11/10/2024 6:39 PM CDT COMPREHENSIVE METABOLIC PANEL Routine 11/10/2024 6:39 PM CDT EGFR Routine 10/30/2024 2:44 PM CDT Atrial fibrillation and flutter (HCC) THYROID FUNCTION CASCADE Routine 10/30/2024 2:44 PM CDT Atrial fibrillation and flutter (HCC) COMPREHENSIVE METABOLIC PANEL Routine 10/30/2024 2:44 PM CDT Atrial fibrillation and flutter (HCC) ECG 12-LEAD Routine 10/30/2024 2:10 PM CDT Secondary hypertension DEVICE CHECK - IN OFFICE Routine 10/30/2024 1:20 PM CDT Fitting or adjustment of cardiac pacemaker DEVICE CHECK - REMOTE Routine 10/05/2024 1:52 PM CDT from Last 3 Months Results * ECG 12 lead (12/19/2024 10:17 AM CDT) us Emma Saxena NP ECG ORDERABLES Edited Re sult - Final * eGFR (11/13/2024 10:05 AM CDT) eGFR 88 >=60 mL/min/1. 73 m2 Comment: Interpretive Data Reference Interval Normal >/= 90 mL/min/1.73m2 Mildly decreased* 60 - 89 mL/min/1.73m2 Mildly to moderately decreased 45 - 59 mL/min/1.73m2 Moderately to severely decreased 30 - 44 mL/min/1.73m2 Severely decreased 15 - 29 mL/min/1.73m2 Kidney Failure < 15 mL/min/1.73m2 *Relative to young adult level Estimated glomerular filtration rate is determined by the 2020 CKD-EPI equation recommended by the National Kidney Foundation (A Unifying Approach to GFR Estimation: Recommendations of the NKF-ASK Task Force on Reassessing the Inclusion of Race in Diagnosing Kidney Disease, JASN 2020). The CKD-EPI equation should not be used for patients with unstable renal function and has not been validated in children and those over 70. Current interpretive data was last reviewed 2021. Blood 11/13/2024 10:0 5 AM CDT 11/13/2024 10:57 AM CDT Socrates Levy MD LAB BLOOD ORDERABLES Radha l Result Performing Organization Address [facility] Co de Phone Number [facility] [place] [employer] [place] [address] * Magnesium (11/13/2024 10:05 AM CDT) Magnesium 1.9 1.4 - 2.5 mg/dL Blood 11/13/2024 10:0 5 AM CDT 11/13/2024 10:57 AM CDT Socrates Levy MD LAB BLOOD ORDERABLES Radha l Result Performing Organization Address City/[facility] Co de Phone Number [facility] Department [place] [address] * (ABNORMAL) Basic metabolic panel (11/13/2024 10:05 AM CDT) Sodium 135 135 - 145 mmol/L Potassium, pl 3.9 3.3 - 4.9 mmol/L [facility] Comment:Hemolyzed; Potassium value may be falsely elevated by as much as 0.3-0.5 mmol/L. Suggest redraw and reanalysis. Chloride 103 97 - 110 mmol/L [facility] CO2 25 22 - 32 mmol/L [facility] Anion gap 7 2 - 15 mmol/L [facility] BUN 13 6 - 25 mg/dL [facility] Creatinine 0.89 0.80 - 1.30 mg/dL [facility] Glucose 93 70 - 199 mg/dL [facility] Comment: Interpretive Data Fasting glucose >/= 126 mg/dl is diagnostic for diabetes. Fasting is defined as no caloric intake for at least 8 hours. Fasting glucose between 100 mg/dl to 125 mg/dl is diagnostic of prediabetes. In a patient with classic symptoms of hyperglycemia or hyperglycemic crisis, a random glucose >/= 200 mg/dl is diagnostic for diabetes. In the absence of unequivocal hyperglycemia, results should be confirmed by repeat testing. The classification and Diagnosis of Diabetes Diabetes Care 2021; 46: S19-S40. Current interpretive data was last revised 2022. Calcium 8.3(L) 8.5 - 10.3 mg/dL [facility] Blood 11/13/2024 10:0 5 AM CDT 11/13/2024 10:57 AM CDT us Socrates Levy MD LAB BLOOD ORDERABLES Radha l Result [facility] One [facility] Department [place] [address] * CARDIOVERSION (11/13/2024 8:55 AM CDT) Anatomical Region Laterality Modality X-Ray Angiograph y Impressions 11/14/2024 5:23 AM CDT Successful DC Cardioversion of AFib. The referring physician Dr. Levy was notified. I was present to personally supervise or perform the entire procedure. Narrative 11/14/2024 5:23 AM CDT CARDIOVERSION [id number] PRE-OP DIAGNOSIS: Atrial fibrillation MARKING MACHINE OPERATOR: Dr Cam MOTLEY MD: Dr. Levy HISTORY: 79 y/o M with atrial Fib. Anticoagulation with Apixaban 5 mg bid. PROCEDURE: Biphasic, synchronized DC cardioversion. The nature of the procedure, risks and alternatives were discussed with the patient who gave informed consent. The patient was sedated with propofol per the anesthesia team. 200J Synchronized DC-CV using R2 Pads placed AP position. Resulting rhythm was Sinus Rhytm. The patient was then monitored until fully alert. COMPLICATIONS: None. Erika Brar MD CV ELECTROPHYSIOLOGY PRO CS Final Result * ECG 12 lead (11/13/2024 6:36 AM CDT) Ventricular Rate EKG/Min 84 BPM [facility] QRS-Interval (MSEC) 116 ms [facility] QT-Interval (MSEC) 414 ms [facility] QTc 489 ms [facility] R Rangely -55 degrees [facility] T Rangely 74 degrees [facility] Diagnosis Normal sinus rhythm with occasional AV dual-paced complexes Right bundle branch block Left anterior fascicular block Bifascicular block Minimal voltage criteria for LVH, may be normal variant ( R in aVL ) Abnormal ECG When compared with ECG of 12-NOV-2024 23:06, (unconfirmed) Electronic ventricular pacemaker has replaced Junctional rhythm Confirmed by NOVA WAGNER M.D ([id number]) on 11/13/2024 10:27:41 AM [facility] 11/13/2024 6:36 AM CDT 11/13/2024 10:27 AM CDT us Socrates Levy MD ECG ORDERABLES Final Res ult [facility] * ECG 12 lead (11/12/2024 11:06 PM CDT) Ventricular Rate EKG/Min 88 BPM [facility] QRS-Interval (MSEC) 116 ms [facility] QT-Interval (MSEC) 398 ms [facility] QTc 481 ms [facility] R Rangely -44 degrees [facility] T Rangely 71 degrees [facility] Diagnosis Accelerated Junctional rhythm Left axis deviation Right bundle branch block Abnormal ECG When compared with ECG of 11-NOV-2024 23:07, (unconfirmed) Junctional rhythm has replaced Electronic ventricular pacemaker Confirmed by KYLE HIDALGO M.D ([id number]) on 11/14/2024 9:46:07 AM [facility] 11/12/2024 11:0 6 PM CDT 11/14/2024 9:46 AM CDT Socrates Levy MD ECG ORDERABLES Final Res ult [facility] * eGFR (11/12/2024 9:39 PM CDT) eGFR 75 >=60 mL/min/1. 73 m2 Comment: Interpretive Data Reference Interval Normal >/= 90 mL/min/1.73m2 Mildly decreased* 60 - 89 mL/min/1.73m2 Mildly to moderately decreased 45 - 59 mL/min/1.73m2 Moderately to severely decreased 30 - 44 mL/min/1.73m2 Severely decreased 15 - 29 mL/min/1.73m2 Kidney Failure < 15 mL/min/1.73m2 *Relative to young adult level Estimated glomerular filtration rate is determined by the 2020 CKD-EPI equation recommended by the National Kidney Foundation (A Unifying Approach to GFR Estimation: Recommendations of the NKF-ASK Task Force on Reassessing the Inclusion of Race in Diagnosing Kidney Disease, JASN 2020). The CKD-EPI equation should not be used for patients with unstable renal function and has not been validated in children and those over 70. Current interpretive data was last reviewed 2021. Blood 11/12/2024 9:39 PM CDT 11/12/2024 10:17 PM CDT Socrates Levy MD LAB BLOOD ORDERABLES Radha l Result Performing Organization Address [facility] Co de Phone Number [facility] Department [place] [address] * (ABNORMAL) CBC without differential (11/12/2024 9:39 PM CDT) Pathologist [facility] WBC 7.98 3.80 - 9.90 K/cumm Hgb 17.5 13.0 - 17.5 g/dL [facility] Hct 50.0 38.9 - 50.3 % [facility] Plt 132(L) 150 - 400 K/cumm [facility] MPV 11.0 9.1 - 12.3 fL [facility] RBC 5.28 4.30 - 5.80 M/cumm [facility] MCV 94.7 81.3 - 96.4 fL [facility] MCH 33.1 27.1 - 33.3 pg [facility] MCHC 35.0 32.3 - 35.7 g/dL [facility] RDW CV 14.6 11.1 - 14.9 % [facility] RDW SD 50.6(H) 35.7 - 48.1 fL [facility] NRBC abs 0.00 0.00 - 0.01 K/cumm [facility] Blood 11/12/2024 9:39 PM CDT 11/12/2024 10:18 PM CDT us Socrates Levy MD LAB BLOOD ORDERABLES Radha l Result Performing Organization Address [facility] Co de Phone Number [facility] [facility] [place] [address] * Magnesium (11/12/2024 9:39 PM CDT) Pathologist [facility] Magnesium 2.1 1.4 - 2.5 mg/dL Blood 11/12/2024 9:39 PM CDT 11/12/2024 10:17 PM CDT Socrates Levy MD LAB BLOOD ORDERABLES Radha l Result [facility] [place] [address] * Basic metabolic panel (11/12/2024 9:39 PM CDT) [facility] Sodium 135 135 - 145 mmol/L Potassium, pl 4.2 3.3 - 4.9 mmol/L [facility] Chloride 103 97 - 110 mmol/L [facility] CO2 25 22 - 32 mmol/L [facility] Anion gap 7 2 - 15 mmol/L [facility] BUN 15 6 - 25 mg/dL [facility] Creatinine 1.03 0.80 - 1.30 mg/dL [facility] Glucose 93 70 - 199 mg/dL [facility] Comment: Interpretive Data Fasting glucose >/= 126 mg/dl is diagnostic for diabetes. Fasting is defined as no caloric intake for at least 8 hours. Fasting glucose between 100 mg/dl to 125 mg/dl is diagnostic of prediabetes. In a patient with classic symptoms of hyperglycemia or hyperglycemic crisis, a random glucose >/= 200 mg/dl is diagnostic for diabetes. In the absence of unequivocal hyperglycemia, results should be confirmed by repeat testing. The classification and Diagnosis of Diabetes Diabetes Care 2021; 46: S19-S40. Current interpretive data was last revised 2022. Calcium 9.3 8.5 - 10.3 mg/dL [facility] Blood 11/12/2024 9:39 PM CDT 11/12/2024 10:17 PM CDT us Socrates Levy MD LAB BLOOD ORDERABLES Radha l Result Performing Organization Address [facility]/ZIP Co de Phone Number [facility] [place] [address] * TRANSTHORACIC ECHO (TTE) COMPLETE W DOPPLER/CF W CONTRAST (11/12/2024 2:27 PM CDT) [facility] Estimated EF 55 % CONS SCIMAGE EF Mod BP 64 % CONS SCIMAGE Anatomical Region Laterality Modality Ultrasound 11/12/2024 1:28 PM CDT Narrative 11/12/2024 2:55 PM CDT [facility] Cardiac Diagnostic [place] [address] Transthoracic Echocardiographic Report Patient Name: KATE BELLAMY W : 1945 (79y 7m) Gender: M Study Date: 11/12/2024 01:28:59 PM Ht(Inch): 72 Wt(Lb): 199.96 BSA: 2.15 Staff Toxicologist: Jessie Dubose RUST Location: [id number] Order Provider: SOCRATES LEVY Heart Rate: 91 BMI: 27.12 BP: 112 / 78 Ref Provider: SOCRATES LEVY PROCEDURES: Echocardiographic Report: Transthoracic complete echo with strain imaging and contrast, 2D, spectral and tissue Doppler, color flow Doppler, M-mode. Contrast: Contrast Enhancement was Employed: After initial imaging due to sub- optimal quality related to co-morbidity defined by patient's body habitus and due to suboptimal image quality with inadequate visualization of at least 2 of 16 LV wall segments in any view after initial imaging. Perflutren contrast was administered using the volume necessary to obtain adequate images. 0.4 ml Optison Administered, (2.6 ml wasted). Technically difficult study due to: Body habitus. Poor acoustic windows. INDICATIONS: Atrial fibrillation and Atrial flutter. CONCLUSIONS: 1. Normal left ventricular size based on volume index. Concentric LV remodeling. Normal left ventricular systolic function. The Ejection Fraction is visually estimated to be 55 %. Left ventricular diastolic function is indeterminate. The average global longitudinal strain is abnormal. 2. Normal right ventricular size. Normal right ventricular systolic function. Wire noted in the right heart. 3. There is no significant valvular heart disease. 4. Normal pericardium without pericardial effusion. 5. Normal aortic root size when indexed. 6. IVC is normal in size. 7. Unable to determine PASP due to inadequate TR jet. ATTESTATION: I have personally reviewed and interpreted this study without fellow or resident. - DISCLAIMER: The study images and the final report will be retained in the patient chart by the Echo Laboratory for the legally required time period. This chart constitutes the legal record of any testing performed. FINDINGS: Left Ventricle: Normal left ventricular size based on volume index. Concentric LV remodeling. Normal left ventricular systolic function. The Ejection Fraction is visually estimated to be 55 %. Left ventricular diastolic function is indeterminate. The average global longitudinal strain is abnormal. The LV global strain is: -10.4 %. Right Ventricle: Normal right ventricular size. Normal right ventricular systolic function. Wire noted in the right heart. Left Atrium: The left atrium is normal in size. Right Atrium: The right atrium is normal in size. Mitral Valve: Normal mitral valve structure. Mild mitral valve regurgitation. No stenosis present. Aortic Valve: Normal trileaflet aortic valve. No aortic regurgitation. No aortic valve stenosis. Tricuspid Valve: Normal tricuspid valve structure. No tricuspid regurgitation. No tricuspid valve stenosis. Pulmonic Valve: Normal pulmonic valve structure. No pulmonic regurgitation. No pulmonic valve stenosis present. Pericardium: Normal pericardium without pericardial effusion. Aorta: Normal aortic root size when indexed. The ascending aorta is normal in size when indexed. IVC: IVC is normal in size. PASP: Unable to determine PASP due to inadequate TR jet. MEASUREMENTS: 2D/MM Value Range Doppler Value Range LVIDd 2D 4.40 cm [ 4.20 - 5.80 ] AV Peak Anderson 1.2 m/s [ 1.0 - 1.7 ] LVIDs 2D 2.82 cm [ 2.50 - 4.00 ] AV Peak PG 5.76 mmHg IVSd 2D 1.38 cm [ 0.60 - 1.00 ] AV Mean PG 4 mmHg LVPWd 2D 1.44 cm [ 0.60 - 1.00 ] AV VTI 22.4 cm LV Thickness Ratio 1.0 LVOT Peak Anderson 0.9 m/s [ 0.7 - 1.1 ] LV FS 2D 35.89 % [ 25.00 - 43.00 ] LVOT Peak PG 3.24 mmHg LV Mass 2D 245.59 g LVOT Mean PG 2 mmHg LV Mass Index 2D 114.23 g/m2 LVOT VTI 16.6 cm RWT 0.65 LVOT Diam 1.99 cm EDV Mod BP 122.82 ml [ 62.00 - 150.00 ] LOS VTI 2.30 cm2 LV EDV Index 57.13 ml/m2 LVOT/AV VTI 0.74 - Dimensionless index (DVI) ESV Mod BP 44.60 ml [ 21.00 - 61.00 ] MV E Peak Anderson 0.8 m/s [ 0.6 - 1.3 ] EF Mod BP 64 % [ 52 - 72 ] MV A Peak Anderson 0.3 m/s [ 1.0 - 1.2 ] Visually Estimated EF 55 % MV E/A 287.6 ratio [ 0.8 - 1.5 ] LV GLS -10.4 % [ -25.0 - -18.0 ] MV Decel Time 154.47 msec [ 104.00 - 258.00 ] LA Length 4C 5.18 cm TR Peak Anderson 0.1 m/s [ 1.0 - 2.8 ] LA Length 2C 5.86 cm TR Peak PG 0.0 mmHg LA Volume BP 49.44 ml PV Peak Anderson 0.4 m/s [ 0.4 - 0.8 ] LA Volume Index 23.00 ml/m2 [ 16.00 - 34.00 ] PV Peak PG 0.64 mmHg RV Base Dimen 2D 4.1 cm [ 2.5 - 4.2 ] TAPSE 1.15 cm [ 1.71 - 5.00 ] RA Volume 45.78 ml RA Volume Index 21.29 ml/m2 AoR Diam 2D 3.53 cm [ 3.10 - 3.70 ] Ao Root Index 1.64 cm/m2 [ 1.00 - 2.00 ] Asc Ao Diam 2D 3.62 cm Asc Ao Index 1.68 cm/m2 Electronically Signed By: Abram Schwartz MD 11/12/2024 2:55:29 PM CDT Procedure Note Abram Schwartz MD - 11/12/2024 [facility] Cardiac Diagnostic [place] [address] Transthoracic Echocardiographic Report Patient Name: KATE BELLAMY W : 1945 (79y 7m) Gender: M Study Date: 11/12/2024 01:28:59 PM Ht(Inch): 72 Wt(Lb): 199.96 BSA: 2.15 Staff Toxicologist: Jessie Dubose RUST Location: [id number] Order Provider:SOCRATES LEVY Heart Rate: 91 BMI: 27.12 BP: 112 / 78 Ref Provider: SOCRATES LEVY PROCEDURES: Echocardiographic Report: Transthoracic complete echo with strain imagingand contrast, 2D, spectral and tissue Doppler, color flow Doppler, M-mode. Contrast: Contrast Enhancement was Employed: After initial imaging due tosub- optimal quality related to co-morbidity defined by patient's body habitus and dueto suboptimal image quality with inadequate visualization of at least 2 of 16 LV wallsegments in any view after initial imaging. Perflutren contrast was administered using thevolume necessary to obtain adequate images. 0.4 ml Optison Administered, (2.6 mlwasted). Technically difficult study due to: Body habitus. Poor acoustic windows. INDICATIONS: Atrial fibrillation and Atrial flutter. CONCLUSIONS: 1. Normal left ventricular size based on volume index. Concentric LVremodeling. Normal left ventricular systolic function. The Ejection Fraction is visuallyestimated to be 55 %. Left ventricular diastolic function is indeterminate. The averageglobal longitudinal strain is abnormal. 2. Normal right ventricular size. Normal right ventricular systolicfunction. Wire noted in the right heart. 3. There is no significant valvular heart disease. 4. Normal pericardium without pericardial effusion. 5. Normal aortic root size when indexed. 6. IVC is normal in size. 7. Unable to determine PASP due to inadequate TR jet. ATTESTATION: I have personally reviewed and interpreted this study without fellow orresident. - DISCLAIMER: The study images and the final report will be retained in the patientchart by the Echo Laboratory for the legally required time period. This chart constitutesthe legal record of any testing performed. FINDINGS: Left Ventricle: Normal left ventricular size based on volume index.Concentric LV remodeling. Normal left ventricular systolic function. The EjectionFraction is visually estimated to be 55 %. Left ventricular diastolic function isindeterminate. The average global longitudinal strain is abnormal. The LV global strain is: -10.4%. Right Ventricle: Normal right ventricular size. Normal right ventricularsystolic function. Wire noted in the right heart. Left Atrium: The left atrium is normal in size. Right Atrium: The right atrium is normal in size. Mitral Valve: Normal mitral valve structure. Mild mitral valveregurgitation. No stenosis present. Aortic Valve: Normal trileaflet aortic valve. No aortic regurgitation. Noaortic valve stenosis. Tricuspid Valve: Normal tricuspid valve structure. No tricuspidregurgitation. No tricuspid valve stenosis. Pulmonic Valve: Normal pulmonic valve structure. No pulmonicregurgitation. No pulmonic valve stenosis present. Pericardium: Normal pericardium without pericardial effusion. Aorta: Normal aortic root size when indexed. The ascending aorta is normalin size when indexed. IVC: IVC is normal in size. PASP: Unable to determine PASP due to inadequate TR jet. MEASUREMENTS: 2D/MM Value Range DopplerValue Range LVIDd 2D 4.40 cm [ 4.20 - 5.80 ] AV Peak Vel1.2 m/s [ 1.0 - 1.7 ] LVIDs 2D 2.82 cm [ 2.50 - 4.00 ] AV Peak PG5.76 mmHg IVSd 2D 1.38 cm [ 0.60 - 1.00 ] AV Mean PG4 mmHg LVPWd 2D 1.44 cm [ 0.60 - 1.00 ] AV VTI22.4 cm LV Thickness Ratio 1.0 LVOT PeakVel 0.9 m/s [ 0.7 - 1.1 ] LV FS 2D 35.89 % [ 25.00 - 43.00 ] LVOT Peak PG3.24 mmHg LV Mass 2D 245.59 g LVOT Mean PG2 mmHg LV Mass Index 2D 114.23 g/m2 LVOT VTI16.6 cm RWT 0.65 LVOT Diam1.99 cm EDV Mod BP 122.82 ml [ 62.00 - 150.00 ] LOS VTI2.30 cm2 LV EDV Index 57.13 ml/m2 LVOT/AV VTI0.74 - Dimensionless index (DVI) ESV Mod BP 44.60 ml [ 21.00 - 61.00 ] MV E PeakVel 0.8 m/s [ 0.6 - 1.3 ] EF Mod BP 64 % [ 52 - 72 ] MV A PeakVel 0.3 m/s [ 1.0 - 1.2 ] Visually Estimated EF 55 % MV E/A287.6 ratio [ 0.8 - 1.5 ] LV GLS -10.4 % [ -25.0 - -18.0 ] MV DecelTime 154.47 msec [ 104.00 - 258.00 ] LA Length 4C 5.18 cm TR Peak Vel0.1 m/s [ 1.0 - 2.8 ] LA Length 2C 5.86 cm TR Peak PG0.0 mmHg LA Volume BP 49.44 ml PV Peak Vel0.4 m/s [ 0.4 - 0.8 ] LA Volume Index 23.00 ml/m2 [ 16.00 - 34.00 ] PV Peak PG0.64 mmHg RV Base Dimen 2D 4.1 cm [ 2.5 - 4.2 ] TAPSE 1.15 cm [ 1.71 - 5.00 ] RA Ibybix51.78 ml RA Volume Index21.29 ml/m2 AoR Diam 2D 3.53 cm [ 3.10 - 3.70 ] Ao Root Index 1.64 cm/m2 [ 1.00 - 2.00 ] Asc Ao Diam 2D3.62 cm Asc Ao Index1.68 cm/m2 Electronically Signed By: Abram Schwartz MD 11/12/2024 2:55:29 PM CDT Socrates Levy MD CV ECHO PROCEDURES Final Result * eGFR (11/12/2024 8:44 AM CDT) eGFR 79 >=60 mL/min/1. 73 m2 Comment: Interpretive Data Reference Interval Normal >/= 90 mL/min/1.73m2 Mildly decreased* 60 - 89 mL/min/1.73m2 Mildly to moderately decreased 45 - 59 mL/min/1.73m2 Moderately to severely decreased 30 - 44 mL/min/1.73m2 Severely decreased 15 - 29 mL/min/1.73m2 Kidney Failure < 15 mL/min/1.73m2 *Relative to young adult level Estimated glomerular filtration rate is determined by the 2020 CKD-EPI equation recommended by the National Kidney Foundation (A Unifying Approach to GFR Estimation: Recommendations of the NKF-ASK Task Force on Reassessing the Inclusion of Race in Diagnosing Kidney Disease, JASN 2020). The CKD-EPI equation should not be used for patients with unstable renal function and has not been validated in children and those over 70. Current interpretive data was last reviewed 2021. Blood 11/12/2024 8:44 AM CDT 11/12/2024 9:36 AM CDT Socrates Levy MD LAB BLOOD ORDERABLES Radha l Result Performing Organization Address City/[facility]/ZIP Co de Phone Number [facility] [place] [address] * Magnesium (11/12/2024 8:44 AM CDT) Magnesium 2.0 1.4 - 2.5 mg/dL Blood 11/12/2024 8:44 AM CDT 11/12/2024 9:36 AM CDT Socrates Levy MD LAB BLOOD ORDERABLES Radha l Result [facility] [place] [address] * Basic metabolic panel (11/12/2024 8:44 AM CDT) Pathologist [facility] Sodium 137 135 - 145 mmol/L Potassium, pl 4.2 3.3 - 4.9 mmol/L [facility] Chloride 101 97 - 110 mmol/L [facility] CO2 27 22 - 32 mmol/L [facility] Anion gap 9 2 - 15 mmol/L [facility] BUN 15 6 - 25 mg/dL [facility] Creatinine 0.98 0.80 - 1.30 mg/dL [facility] Glucose 155 70 - 199 mg/dL [facility] Comment: Interpretive Data Fasting glucose >/= 126 mg/dl is diagnostic for diabetes. Fasting is defined as no caloric intake for at least 8 hours. Fasting glucose between 100 mg/dl to 125 mg/dl is diagnostic of prediabetes. In a patient with classic symptoms of hyperglycemia or hyperglycemic crisis, a random glucose >/= 200 mg/dl is diagnostic for diabetes. In the absence of unequivocal hyperglycemia, results should be confirmed by repeat testing. The classification and Diagnosis of Diabetes Diabetes Care 2021; 46: S19-S40. Current interpretive data was last revised 2022. Calcium 8.9 8.5 - 10.3 mg/dL [facility] Blood 11/12/2024 8:44 AM CDT 11/12/2024 9:36 AM CDT Socrates Levy MD LAB BLOOD ORDERABLES Radha l Result [facility] [place] [address] * eGFR (11/12/2024 3:40 AM CDT) Pathologist [facility] eGFR 79 >=60 mL/min/1. 73 m2 Comment: Interpretive Data Reference Interval Normal >/= 90 mL/min/1.73m2 Mildly decreased* 60 - 89 mL/min/1.73m2 Mildly to moderately decreased 45 - 59 mL/min/1.73m2 Moderately to severely decreased 30 - 44 mL/min/1.73m2 Severely decreased 15 - 29 mL/min/1.73m2 Kidney Failure < 15 mL/min/1.73m2 *Relative to young adult level Estimated glomerular filtration rate is determined by the 2020 CKD-EPI equation recommended by the National Kidney Foundation (A Unifying Approach to GFR Estimation: Recommendations of the NKF-ASK Task Force on Reassessing the Inclusion of Race in Diagnosing Kidney Disease, JASN 202). The CKD-EPI equation should not be used for patients with unstable renal function and has not been validated in children and those over 70. Current interpretive data was last reviewed 2021. Blood 11/12/2024 3:40 AM CDT 11/12/2024 4:30 AM CDT us Socrates Levy MD LAB BLOOD ORDERABLES Radha ring Result [facility] [address] [facility] [place] [address] * (ABNORMAL) CBC without differential (11/12/2024 3:40 AM CDT) WBC 6.85 3.80 - 9.90 K/cumm Hgb 17.1 13.0 - 17.5 g/dL [facility] Hct 48.8 38.9 - 50.3 % [facility] Plt 123(L) 150 - 400 K/cumm [facility] MPV 11.1 9.1 - 12.3 fL [facility] RBC 5.18 4.30 - 5.80 M/cumm [facility] MCV 94.2 81.3 - 96.4 fL [facility] MCH 33.0 27.1 - 33.3 pg [facility] MCHC 35.0 32.3 - 35.7 g/dL [facility] RDW CV 14.5 11.1 - 14.9 % [facility] RDW SD 49.8(H) 35.7 - 48.1 fL [facility] NRBC abs 0.00 0.00 - 0.01 K/cumm [facility] Blood 11/12/2024 3:40 AM CDT 11/12/2024 4:30 AM CDT Socrates Levy MD LAB BLOOD ORDERABLES Radha l Result Performing Organization Address [facility] Co de Phone Number [phone] [place] [address] * Magnesium (11/12/2024 3:40 AM CDT) Pathologist [facility] Magnesium 2.2 1.4 - 2.5 mg/dL Blood 11/12/2024 3:40 AM CDT 11/12/2024 4:30 AM CDT Socrates Levy MD LAB BLOOD ORDERABLES Radha l Result Performing Organization Address [facility] de Phone Number [phone] [place] [address] * Basic metabolic panel (11/12/2024 3:40 AM CDT) Pathologist [facility] Sodium 135 135 - 145 mmol/L Potassium, pl 4.0 3.3 - 4.9 mmol/L [facility] Chloride 101 97 - 110 mmol/L [facility] CO2 26 22 - 32 mmol/L [facility] Anion gap 8 2 - 15 mmol/L [facility] BUN 16 6 - 25 mg/dL [facility] Creatinine 0.98 0.80 - 1.30 mg/dL [facility] Glucose 91 70 - 199 mg/dL [facility] Comment: Interpretive Data Fasting glucose >/= 126 mg/dl is diagnostic for diabetes. Fasting is defined as no caloric intake for at least 8 hours. Fasting glucose between 100 mg/dl to 125 mg/dl is diagnostic of prediabetes. In a patient with classic symptoms of hyperglycemia or hyperglycemic crisis, a random glucose >/= 200 mg/dl is diagnostic for diabetes. In the absence of unequivocal hyperglycemia, results should be confirmed by repeat testing. The classification and Diagnosis of Diabetes Diabetes Care 2022; 46: S19-S40. Current interpretive data was last revised 2022. Calcium 8.7 8.5 - 10.3 mg/dL [facility] Blood 11/12/2024 3:40 AM CDT 11/12/2024 4:30 AM CDT Socrates Levy MD LAB BLOOD ORDERABLES Radha l Result Performing Organization Address City/[facility]/ZIP Co de Phone Number [facility] [address] [facility] [place] [address] * ECG 12 lead (11/11/2024 11:07 PM CDT) Ventricular Rate EKG/Min 86 BPM [facility] QRS-Interval (MSEC) 116 ms [facility] QT-Interval (MSEC) 404 ms [facility] QTc 483 ms [facility] R Rangely -52 degrees [facility] T [place]angely 38 degrees [facility] Diagnosis Atrial fibrillation with occasional ventricular-pac ed complexes Right bundle branch block Left anterior fascicular block Bifascicular block Minimal voltage criteria for LVH, may be normal variant ( R in aVL ) Abnormal ECG Confirmed by Efren SAUNDERS [facility] ([id number]) on 11/13/2024 11:14:00 AM [facility] 11/11/2024 11:0 7 PM CDT 11/13/2024 11:14 AM CDT Socrates Levy MD ECG ORDERABLES Final Res ult Performing Organization Address [facility]/ZIP Co de Phone Number [facility] * ECG 12 lead (11/11/2024 11:04 AM CDT) Ventricular Rate EKG/Min 77 BPM [facility] QRS-Interval (MSEC) 116 ms [facility] QT-Interval (MSEC) 406 ms [facility] QTc 459 ms [facility] R Rangely -48 degrees [facility] T [place] 31 degrees [facility] Diagnosis Atrial fibrillation with occasional ventricular-pac ed complexes Left anterior fascicular block Left ventricular hypertrophy with QRS widening ( R in aVL , Oliver product ) Abnormal ECG When compared with ECG of 10-NOV-2024 23:13, (unconfirmed) atrial fibrillation has developed and Electronic ventricular pacemaker is present Confirmed by KYLE HIDALGO M.D ([id number]) on 11/13/2024 8:40:42 AM [facility] 11/11/2024 11:0 4 AM CDT 11/13/2024 8:40 AM CDT Socrates Levy MD ECG ORDERABLES Final Res ult Performing Organization Address City/[facility]/ZIP Co de Phone Number [facility] * eGFR (11/11/2024 9:12 AM CDT) eGFR 76 >=60 mL/min/1. 73 m2 Comment: Interpretive Data Reference Interval Normal >/= 90 mL/min/1.73m2 Mildly decreased* 60 - 89 mL/min/1.73m2 Mildly to moderately decreased 45 - 59 mL/min/1.73m2 Moderately to severely decreased 30 - 44 mL/min/1.73m2 Severely decreased 15 - 29 mL/min/1.73m2 Kidney Failure < 15 mL/min/1.73m2 *Relative to young adult level Estimated glomerular filtration rate is determined by the 2020 CKD-EPI equation recommended by the National Kidney Foundation (A Unifying Approach to GFR Estimation: Recommendations of the NKF-ASK Task Force on Reassessing the Inclusion of Race in Diagnosing Kidney Disease, JASN 2020). The CKD-EPI equation should not be used for patients with unstable renal function and has not been validated in children and those over 70. Current interpretive data was last reviewed 2021. Blood 11/11/2024 9:12 AM CDT 11/11/2024 9:52 AM CDT Socrates Levy MD LAB BLOOD ORDERABLES Radha l Result [facility] [place] [address] * Magnesium (11/11/2024 9:12 AM CDT) Pathologist [facility] Magnesium 2.1 1.4 - 2.5 mg/dL Blood 11/11/2024 9:12 AM CDT 11/11/2024 9:52 AM CDT Socrates Levy MD LAB BLOOD ORDERABLES Radha l Result [facility] [address] [facility] [place] [address] * Basic metabolic panel (11/11/2024 9:12 AM CDT) Pathologist [facility] Sodium 138 135 - 145 mmol/L Potassium, pl 3.9 3.3 - 4.9 mmol/L [facility] Chloride 99 97 - 110 mmol/L [facility] CO2 28 22 - 32 mmol/L [facility] Anion gap 11 2 - 15 mmol/L [facility] BUN 17 6 - 25 mg/dL [facility] Creatinine 1.02 0.80 - 1.30 mg/dL [facility] Glucose 123 70 - 199 mg/dL [facility] Comment: Interpretive Data Fasting glucose >/= 126 mg/dl is diagnostic for diabetes. Fasting is defined as no caloric intake for at least 8 hours. Fasting glucose between 100 mg/dl to 125 mg/dl is diagnostic of prediabetes. In a patient with classic symptoms of hyperglycemia or hyperglycemic crisis, a random glucose >/= 200 mg/dl is diagnostic for diabetes. In the absence of unequivocal hyperglycemia, results should be confirmed by repeat testing. The classification and Diagnosis of Diabetes Diabetes Care 202; 46: S19-S40. Current interpretive data was last revised 2022. Calcium 9.0 8.5 - 10.3 mg/dL [facility] Blood 11/11/2024 9:12 AM CDT 11/11/2024 9:52 AM CDT Socrates Levy MD LAB BLOOD ORDERABLES Radha l Result [facility] [address] [facility] [place] [address] * ECG 12 lead (11/10/2024 11:13 PM CDT) Ventricular Rate EKG/Min 91 BPM [facility] QRS-Interval (MSEC) 114 ms [facility] QT-Interval (MSEC) 394 ms [facility] QTc 484 ms [facility] R Rangely -51 degrees [facility] T Rangely 55 degrees [facility] Diagnosis Normal sinus rhythm Right bundle branch block Left anterior fascicular block Bifascicular block Minimal voltage criteria for LVH, may be normal variant ( R in aVL ) Abnormal ECG When compared with ECG of 11-SEP-2024 06:22, Normal sinus rhythm has replaced Atrial fibrillation Right bundle branch block is now Present Confirmed by NOVA WAGNER M.D ([id number]) on 11/12/2024 4:24:54 PM [facility] 11/10/2024 11:1 3 PM CDT 11/12/2024 4:24 PM CDT us Socrates Levy MD ECG ORDERABLES Final Res ult Performing Organization Address City/[facility]/ZIP Co de Phone Number [facility] [place] * eGFR (11/10/2024 6:39 PM CDT) eGFR 61 >=60 mL/min/1. 73 m2 Comment: Interpretive Data Reference Interval Normal >/= 90 mL/min/1.73m2 Mildly decreased* 60 - 89 mL/min/1.73m2 Mildly to moderately decreased 45 - 59 mL/min/1.73m2 Moderately to severely decreased 30 - 44 mL/min/1.73m2 Severely decreased 15 - 29 mL/min/1.73m2 Kidney Failure < 15 mL/min/1.73m2 *Relative to young adult level Estimated glomerular filtration rate is determined by the 2020 CKD-EPI equation recommended by the National Kidney Foundation (A Unifying Approach to GFR Estimation: Recommendations of the NKF-ASK Task Force on Reassessing the Inclusion of Race in Diagnosing Kidney Disease, JASN 202). The CKD-EPI equation should not be used for patients with unstable renal function and has not been validated in children and those over 70. Current interpretive data was last reviewed 2021. Blood 11/10/2024 6:39 PM CDT 11/10/2024 7:43 PM CDT Socrates Levy MD LAB BLOOD ORDERABLES Radha l Result Performing Organization Address City/[facility]/ZIP Co de Phone Number [facility] One [facility] [place] [address] * (ABNORMAL) CBC without differential (11/10/2024 6:39 PM CDT) WBC 9.19 3.80 - 9.90 K/cumm Hgb 18.3(H) 13.0 - 17.5 g/dL [facility] Hct 52.7(H) 38.9 - 50.3 % [facility] Plt 136(L) 150 - 400 K/cumm [facility] MPV 11.5 9.1 - 12.3 fL [facility] RBC 5.59 4.30 - 5.80 M/cumm [facility] MCV 94.3 81.3 - 96.4 fL [facility] MCH 32.7 27.1 - 33.3 pg [facility] MCHC 34.7 32.3 - 35.7 g/dL [facility] RDW CV 14.7 11.1 - 14.9 % [facility] RDW SD 49.7(H) 35.7 - 48.1 fL [facility] NRBC abs 0.00 0.00 - 0.01 K/cumm [facility] Blood 11/10/2024 6:39 PM CDT 11/10/2024 7:44 PM CDT Socrates Levy MD LAB BLOOD ORDERABLES Radha l Result Performing Organization Address [facility]/ZIP Co de Phone Number [facility] [place] [address] * Phosphorus (11/10/2024 6:39 PM CDT) [facility] Phosphorus, pl 3.8 2.3 - 4.5 mg/dL Blood 11/10/2024 6:39 PM CDT 11/10/2024 7:43 PM CDT Socrates Levy MD LAB BLOOD ORDERABLES Radha l Result Performing Organization Address [facility] [place] [address] * Magnesium (11/10/2024 6:39 PM CDT) [facility] Magnesium 2.2 1.4 - 2.5 mg/dL Blood 11/10/2024 6:39 PM CDT 11/10/2024 7:44 PM CDT Result [facility] Socrates Levy MD LAB BLOOD ORDERABLES Radha l Result Performing Organization Address [facility] Co de Phone Number [facility] [place] [address] * Hemoglobin A1c (11/10/2024 6:39 PM CDT) [facility] Hgb A1C 5.6 4.0 - 5.6 % Estimated Average Glucose 114 mg/dL [facility] Comment: The ADA recommends reporting an estimated Average Glucose (eAG) with all Hemoglobin A1c results using the equation derived from a study of 507 normal and diabetic adults. Minority populations were underrepresented and children were not included. (Diabetes Care 2020; 43(S1): S66-S76). The eAG is not equivalent to a fasting glucose. Blood 11/10/2024 6:39 PM CDT 11/10/2024 7:44 PM CDT Socrates Levy MD LAB BLOOD ORDERABLES Radha ring Result [facility] [address] [facility] [place] [address] * (ABNORMAL) Lipid panel (11/10/2024 6:39 PM CDT) Cholesterol 185 30 - 199 mg/dL Comment: Interpretive Data Ages < or = 19 years Acceptable: <170 mg/dL Borderline high: 170-199 mg/dL High: >or= 200 mg/dL Ages > or = 20 years Desirable: <200 mg/dL Borderline high: 200-239 mg/dL High: >or= 240 mg/dL Literature References: 1. Expert Panel on Integrated Guidelines for Cardiovascular Health and Risk Reduction in Children and Adolescents. Pediatrics 2011;128:S213 2. NCEP Expert Panel. Circulation 2004;110:227 Current Interpretive Data was last revised on 2018. Triglycerides 231(H) <=149 mg/dL [facility] Comment: Interpretive Data Ages < or = 9 years Acceptable: <75 mg/dL Borderline high: 75-99 mg/dL High: >or= 100 mg/dL Ages 10 to 20 years Acceptable: <90 mg/dL Borderline high: 90-129 mg/dL High: >or= 130 mg/dL Ages > or = 20 years Desirable: <150 mg/dL Borderline high: 150-199 mg/dL High: 200-499 mg/dL Very high: >or= 499 mg/dL Literature References: 1. Expert Panel on Integrated Guidelines for Cardiovascular Health and Risk Reduction in Children and Adolescents. Pediatrics 2011;128:S213 2. NCEP Expert Panel. Circulation 2004;110:227 Current Interpretive Data was last revised on 2018. HDL 48 >=40 mg/dL [facility] Comment: Interpretive Data Ages < or = 19 years Acceptable: >45 mg/dL Borderline low: 40-45 mg/dL Low: <40 mg/dL Ages > or = 20 years Desirable: >or= 60 mg/dL Low: <40 mg/dL Literature References: 1. Expert Panel on Integrated Guidelines for Cardiovascular Health and Risk Reduction in Children and Adolescents. Pediatrics 2011;128:S213 2. NCEP Expert Panel. Circulation 2004;110:227 Current Interpretive Data was last revised on 2018. LDL, calculated 98 <=129 mg/dL [facility] Comment: Interpretive Data Ages < or = 19 years Acceptable: <110 mg/dL Borderline high: 110-129 mg/dL High: >or= 130 mg/dL Ages > or = 20 years Optimal: <100 mg/dL Near optimal: 100-129 mg/dL Borderline high: 130-159 mg/dL High: >160 mg/dL Calculated using the Miguel Ángel LDL-C estimating equation. This equation was implemented on 2024. Prior to this date LDL-C was estimated using the Friedewald equation. Literature References: 1. Expert Panel on Integrated Guidelines for Cardiovascular Health and Risk Reduction in Children and Adolescents. Pediatrics 2011;128:S213 2. NCEP Expert Panel. Circulation 2004;110:227 3. Miguel Ángel Almonte et al. ARLETH Cardiol. 2019September 13;5(5):540-548. doi: 10.1001/jamacardio.2020.0013 Current Interpretive Data was last revised on 2024. Non-HDL Cholesterol 137 mg/dL [facility] Comment: Interpretive Data Ages < or = 19 years Acceptable: <120 mg/dL Borderline high: 120-144 mg/dL High: >145 mg/dL Ages > or = 20 years When triglycerides are >200 mg/dL, Non-HDL cholesterol is a secondary target of therapy with treatment goals that are 30 mg/dL greater than the LDL cholesterol target. Literature References: 1. Expert Panel on Integrated Guidelines for Cardiovascular Health and Risk Reduction in Children and Adolescents. Pediatrics 2011;128:S213 2. NCEP Expert Panel. Circulation 2004;110:227 Current Interpretive Data was last revised on 2018. Chol/HDL ratio 4 [facility] Blood 11/10/2024 6:39 PM CDT 11/10/2024 7:43 PM CDT us Socrates Levy MD LAB BLOOD ORDERABLES Radha ring Result [facility] [place] [address] * Comprehensive metabolic panel (11/10/2024 6:39 PM CDT) Sodium 142 135 - 145 mmol/L Potassium, pl 4.4 3.3 - 4.9 mmol/L [facility] Comment:Hemolyzed; Potassium value may be falsely elevated by as much as 0.3-0.5 mmol/L. Suggest redraw and reanalysis. Chloride 103 97 - 110 mmol/L [facility] CO2 25 22 - 32 mmol/L [facility] Anion gap 14 2 - 15 mmol/L [facility] BUN 18 6 - 25 mg/dL [facility] Creatinine 1.22 0.80 - 1.30 mg/dL [facility] Glucose 89 70 - 199 mg/dL [facility] Comment: Interpretive Data Fasting glucose >/= 126 mg/dl is diagnostic for diabetes. Fasting is defined as no caloric intake for at least 8 hours. Fasting glucose between 100 mg/dl to 125 mg/dl is diagnostic of prediabetes. In a patient with classic symptoms of hyperglycemia or hyperglycemic crisis, a random glucose >/= 200 mg/dl is diagnostic for diabetes. In the absence of unequivocal hyperglycemia, results should be confirmed by repeat testing. The classification and Diagnosis of Diabetes Diabetes Care 202; 46: S19-S40. Current interpretive data was last revised 2022. Calcium 9.4 8.5 - 10.3 mg/dL [facility] Bilirubin, total 1.1 0.1 - 1.2 mg/dL [facility] Protein, pl 8.1 6.5 - 8.5 g/dL [facility] Albumin 4.5 3.5 - 5.0 g/dL [facility] Alk phos 66 40 - 130 Units/L [facility] ALT 36 7 - 55 Units/L [facility] AST 40 10 - 50 Units/L [facility] Comment:Hemolyzed; result ma y be falsely elevated Blood 11/10/2024 6:39 PM CDT 11/10/2024 7:43 PM CDT us Socrates Levy MD LAB BLOOD ORDERABLES Radha ring Result [facility] [place] [address] * eGFR (10/30/2024 2:44 PM CDT) eGFR 83 >=60 mL/min/1. 73 m2 Comment: Interpretive Data Reference Interval Normal >/= 90 mL/min/1.73m2 Mildly decreased* 60 - 89 mL/min/1.73m2 Mildly to moderately decreased 45 - 59 mL/min/1.73m2 Moderately to severely decreased 30 - 44 mL/min/1.73m2 Severely decreased 15 - 29 mL/min/1.73m2 Kidney Failure < 15 mL/min/1.73m2 *Relative to young adult level Estimated glomerular filtration rate is determined by the 2020 CKD-EPI equation recommended by the National Kidney Foundation (A Unifying Approach to GFR Estimation: Recommendations of the NKF-ASK Task Force on Reassessing the Inclusion of Race in Diagnosing Kidney Disease, JASN 2020). The CKD-EPI equation should not be used for patients with unstable renal function and has not been validated in children and those over 70. Current interpretive data was last reviewed 2021. Blood 10/30/2024 2:44 PM CDT 10/30/2024 3:57 PM CDT us Emma Saxena NP LAB BLOOD ORDERABLES Radha l Result Performing Organization Address [facility] de Phone Number [facility] One [facility] [place] [address] * Thyroid Function [place] (10/30/2024 2:44 PM CDT) TSH 1.14 0.30 - 4.20 mcIUnit/mL Blood 10/30/2024 2:44 PM CDT 10/30/2024 3:20 PM CDT us mEma Saxena NP LAB BLOOD ORDERABLES Radha l Result Performing Organization Address [facility]/State/ZIP Co de Phone Number [facility] [place] [address] * Comprehensive metabolic panel (10/30/2024 2:44 PM CDT) Sodium 139 135 - 145 mmol/L Potassium, pl 4.1 3.3 - 4.9 mmol/L [facility] Comment:Hemolyzed; Potassium value may be falsely elevated by as much as 0.3-0.5 mmol/L. Suggest redraw and reanalysis. Chloride 101 97 - 110 mmol/L [facility] CO2 25 22 - 32 mmol/L [facility] Anion gap 13 2 - 15 mmol/L [facility] BUN 15 6 - 25 mg/dL [facility] Creatinine 0.94 0.80 - 1.30 mg/dL [facility] Glucose 116 70 - 199 mg/dL [facility] Comment: Interpretive Data Fasting glucose >/= 126 mg/dl is diagnostic for diabetes. Fasting is defined as no caloric intake for at least 8 hours. Fasting glucose between 100 mg/dl to 125 mg/dl is diagnostic of prediabetes. In a patient with classic symptoms of hyperglycemia or hyperglycemic crisis, a random glucose >/= 200 mg/dl is diagnostic for diabetes. In the absence of unequivocal hyperglycemia, results should be confirmed by repeat testing. The classification and Diagnosis of Diabetes Diabetes Care 2021; 46: S19-S40. Current interpretive data was last revised 2022. Calcium 9.4 8.5 - 10.3 mg/dL [facility] Bilirubin, total 1.1 0.1 - 1.2 mg/dL [facility] Protein, pl 8.0 6.5 - 8.5 g/dL [facility] Albumin 4.2 3.5 - 5.0 g/dL [facility] Alk phos 68 40 - 130 Units/L [facility] ALT 36 7 - 55 Units/L [facility] AST 47 10 - 50 Units/L [facility] Comment:Hemolyzed; result ma y be falsely elevated Blood 10/30/2024 2:44 PM CDT 10/30/2024 3:20 PM CDT Emma Saxena NP LAB BLOOD ORDERABLES Radha ring Result [facility] [place] [address] * ECG 12 lead (10/30/2024 2:10 PM CDT) Emma Saxena NP ECG ORDERABLES Edited Re sult - Final * DEVICE CHECK - IN OFFICE (10/30/2024 1:20 PM CDT) Anatomical Region Laterality Modality Other 10/30/2024 2:00 AM CDT Narrative 11/08/2024 10:46 AM CDT Interpretation Summary: Battery and Leads (BL) Normal parameters noted on battery and lead(s) --- battery longevity estimate: 8 mo. Magnet rate 85 bpm Presenting Rhythm (TN) Atrial Sensing-Ventricular Sensing (-VS) --- Underlying rhythm: AFL with PVCs Arrhythmic events (AE) Atrial High-Rate Episode(s) identified --- 197 AT/AF episodes- available EGMS suggestive of A-Flutter, V rate 90s-100s bpm Anticoagulation (AC) Patient on anticoagulant therapy Patient prescribed Apixaban (Eliquis) Procedure Note Adis Hunt MD - 11/08/2024 Interpretation Summary: Battery and Leads (BL) Normal parameters noted on battery and lead(s) --- battery longevityestimate: 8 mo. Magnet rate 85 bpm Presenting Rhythm (TN) Atrial Sensing-Ventricular Sensing (-VS) --- Underlying rhythm: AFL withPVCs Arrhythmic events (AE) Atrial High-Rate Episode(s) identified --- 197 AT/AF episodes- availableEGMS suggestive of A-Flutter, V rate 90s-100s bpm Anticoagulation (AC) Patient on anticoagulant therapy Patient prescribed Apixaban (Eliquis) Socrates Levy MD CV CARDIAC SERVICES PROCE DURES Final Result * DEVICE CHECK - REMOTE (10/05/2024 1:52 PM CDT) Anatomical Region Laterality Modality Other 10/05/2024 1:52 PM CDT Narrative 09/18/2024 2:16 PM CDT Interpretation Summary: Battery and Leads (BL) Normal parameters noted on battery and lead(s) --- 12 months (8 to 17 months) remaining longevity. Lead impedance, threshold, and sensing trends stable and appropriate. No short V-V intervals. Presenting Rhythm (TN) Atrial Fibrillation or Flutter --- AFlutter/VS 107 to 111 bpm. Arrhythmic events (AE) Persistent atrial fibrillation and/or flutter --- Since 09/11/24: No VHR episodes. AT/AF in progress 8 days. Average V rates 90s to 100s. Anticoagulation (AC) Patient prescribed Apixaban (Eliquis) Patient on anticoagulant therapy Transmission Information (TI) Device Summary Report Procedure Note Socrates Levy MD / Cathryn Hall MD - 10/12/2024 Interpretation Summary: Battery and Leads (BL) Normal parameters noted on battery and lead(s) --- 12 months (8 to 17months) remaining longevity. Lead impedance, threshold, and sensingtrends stable and appropriate. No short V-V intervals. Presenting Rhythm (TN) Atrial Fibrillation or Flutter --- AFlutter/VS 107 to 111 bpm. Arrhythmic events (AE) Persistent atrial fibrillation and/or flutter --- Since 09/11/24: No VHRepisodes. AT/AF in progress 8 days. Average V rates 90s to 100s. Anticoagulation (AC) Patient prescribed Apixaban (Eliquis) Patient on anticoagulant therapy Transmission Information (TI) Device Summary Report us Socrates Levy MD [facility] CARDIAC SERVICES SAM DANIELS Edited Result - Final from Last 3 Months Insurance MEDICARE [facility] MEDICARE SUPPLEMENT MEDICARE [facility] MEDICARE SUPPLEMENT Advance Directives For more information, please contact: [phone] * Full Code (Latest Code Status on File) Date Activated Date Inactivated Comments 11/10/2024 5:39 PM 11/13/2024 9:13 PM Care Teams Rf Technician Relationship Specialty Start Date End Date Mike Dodd MD [address] [facility] [address] [place] [address] PCP - General Family Practice 05/31/23 [place] [address] [address] Nurse Practitioner Nurse Practitioner 01/09/24
--- OUTSIDE RECORDS SUMMARY | 2024-12-28 11:06 | XMS_ITS | Encounter Summary ---
Author Organization [facility] Address [address] [place] [address] Phone Care Team Providers Care Rural Mail Contractor Name Role Phone Mike Dodd MD Primary Care Provider Delvis Amato NP Unavailable [phone] Encounter Details Date Type Department Care Team (Late st Contact Info) Description 10/30/2024 Results Follow-Up [facility] Cardiology [address] [facility] Advanced Medicine [address]th [place] [address] [place] [address] Emma Saxena, MAAME [address] [facility] [address] [place] [address] ECG 12 lead, Comprehensive metabolic panel Social History Tobacco Use Types Packs/Day Years Used Date Smoking Tobacco: Never Smokeless Tobacco: Never Personal Safety Answer Date Recorded Have you ever been in or are you currently in a harmful physical or emotional relationship or is someone making you feel afraid or unsafe? 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 [address] [place] [address] PCP - General Family Practice 05/31/23 [place] [address] [address] Nurse Practitioner Nurse Practitioner 01/09/24 documented as of this encounter
--- OUTSIDE RECORDS SUMMARY | 2024-12-28 11:06 | XMS_ITS | Clinical Summary ---
Author Organization 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
--- OUTSIDE RECORDS SUMMARY | 2024-12-28 11:06 | XMS_ITS | Encounter Summary ---
Author Organization [facility] Address [address] [place] [address] Phone Care Team Providers Care Experimental Display Builder Name Role Phone Shade Maya MD Primary Care Provider [phone] Mike Dodd MD Primary Care Provider Delvis Amato DRESSMAKER GARMENT FITTER Unavailable [phone] Encounter Details Date Type Department Care Team (Late st Contact Info) Description 06/12/2015 Orders Only [facility]INCONV Provider, MD Mary [address] [place] [address] Social History Tobacco Use Types Packs/Day Years Used Date Smoking Tobacco: Never Assessed Sex and Gender Information Value Date Recorded Sex Assigned at Not on file 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 Historical Provider [...] documented as of this encounter Care Teams Experimental Display Builder Relationship Specialty Start Date End Date Shade Maya MD [address] [address] PCP - General 02/28/17 05/30/23 Mike Dodd MD [address] [facility] [address] [place] [address] PCP - General Family Practice 05/31/23 [place] [address] [address] [facility] [address] [place] [address] Nurse Practitioner Nurse Practitioner 01/09/24 documented as of this encounter
--- OUTSIDE RECORDS SUMMARY | 2024-12-28 11:06 | XMS_ITS | Encounter Summary ---
Author Organization [facility] Address [address] [place] [address] Phone Care Team Providers Care Musculoskeletal Physician Name Role Phone Shade Maya MD Primary Care Provider [phone] Mike Dodd MD Primary Care Provider Delvis Amato COUNSELOR AIDE Unavailable Encounter Details Date Type Department Care Team (Late st Contact Info) Description 12/02/2015 Orders Only [facility] Provider, MD Mary [address] [place] [address] Social History Tobacco Use Types Packs/Day Years Used Date Smoking Tobacco: Never Assessed Sex and Gender Information Value Date Recorded Sex Assigned at Not on file 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 Historical Provider [facility] CARDIAC SERVICES PROCE JEREMIAH Final Result * CARDIOLOGY REPORT (12/02/2015) Anatomical Region Laterality Modality Other Narrative 12/02/2015 Ordered by an unspecified provider. Historical Provider CV CARDIAC SERVICES PROCE JEREMIAH [...] documented as of this encounter Care Teams Musculoskeletal Physician Relationship Specialty Start Date End Date Shade Maya MD [address] [address] PCP - General 02/28/17 05/30/23 Mike Dodd MD [address] [facility] [address] [place] [address] PCP - General Family Practice 05/31/23 [place] [address] [address] [place] [address] Nurse Practitioner Nurse Practitioner 01/09/24 documented as of this encounter
[2024-12-28 12:56] LABS: Hematocrit 51.3 % (42.0-52.0); Hemoglobin 17.3 g/dL (14.0-18.0); Immature Granulocyte Percent A 0.3 % (0-0.5); Lymphocytes Absolute Auto 3.48 K/mm3 (0.9-3.2); Mean Corpuscular HGB Conc 33.7 g/dl (32-36); Mean Corpuscular Hemoglobin 32.6 pg (26-34); Mean Corpuscular Volume 96.8 fl (80-100); Nucleated Red Blood Cells Absolute Auto 0.000 K/mm3 (0.0-0.012); Nucleated Red Blood Cells Perc 0.0 % (0.0-0.2); Platelet Count Result 147 k/mm3 (150-375); Red Blood Count 5.30 M/mm3 (4.6-6.20); White Blood Count 7.4 K/mm3 (4.5-10.0)
[2024-12-28 13:23] LABS: Alanine Aminotransferase 61 U/L (6-50); Albumin Level 4.6 g/dL (3.5-5.1); Alkaline Phosphatase 71 U/L (38-126); Anion Gap 6 mmol/L (4-12); Aspartate Amino Transferase 86 U/L (17-59); Bilirubin,Total 1.6 mg/dL (0.2-1.3); Blood Urea Nitrogen 13 mg/dL (9-20); Calcium 9.4 mg/dL (8.4-10.2); Carbon Dioxide 31 mmol/L (22-30); Chloride 101 mmol/L (98-107); Cholesterol 127 mg/dL (0-200); Estimated Glomerular Filt Rate > 60; Glucose 96 mg/dL (65-110); HDL Direct 54 mg/dL; Potassium 5.0 mmol/L (3.4-5.0); Sodium 138 mmol/L (137-145); Total Protein 8.1 g/dL (6.3-8.2); Triglycerides 105 mg/dL (<150)
[2024-12-28 13:44] LABS: Thyroid Stimulating Hormone Reflex 3.030 uIU/mL (0.465-4.68)
[2024-12-28 14:58] LABS: Hemoglobin A1C 5.6 % (<5.7)
[2024-12-28 14:59] LABS: Vitamin B12 494.0 pg/mL (239-931)
== END 2024-12-28 11:04 | disposition home or self-care (01) ==
LOC: ANHGOSHLAB 11:04
PROVIDERS: PCP Family Medicine; Visit Provider Family Medicine
DX: E78.5 Hyperlipidemia, unspecified (principal); I10 Essential (primary) hypertension; R73.9 Hyperglycemia, unspecified; E55.9 Vitamin D deficiency, unspecified; E53.8 Deficiency of other specified B group vitamins
CPT/HCPCS: 36415; 80053; 80061; 82306; 82607; 83036; 84443; 85025